=== PATIENT | female | born 2000 | race Caucasian/White ===

== ENCOUNTER 2024-09-04 14:35 | Outpatient (REF) | payer SELFPAY ==
--- OUTSIDE RECORDS SUMMARY | 2024-09-04 14:37 | XMS_ITS | Encounter Summary ---
Author Organization [facility] Address [address] [place] [address] Care Team Providers Care Chief Technology Officer Name Role Phone None, [place] Primary Care Provider Unavailabl e Encounter Details Date Type Department Care Team (Latest Contact Info) Description 12/24/2023 12:52 PM EDT - 12/24/2023 11:59 PM EDT Hospital Encounter [facility] [address], [address] [place] [address] Adri Tang PA-C [address] [facility] [address] [place], [place] [address] Back pain, unspecified back location, unspecified back pain laterality, unspecified chronicity Discharge Disposition: Home or Self Care Social History Tobacco Use Types Packs/Day Years Used Date Smoking Tobacco: Never Smokeless Tobacco: Never Alcohol Use Standard Drinks/Week Comments Yes 5 (1 standard drink = 0.6 oz pur e alcohol) Comments No Sex and Gender Information Value Date Recorded Sex Assigned at Female 04/29/2023 10:10 AM EDT Legal Sex Female 9:53 PM EST Gender Identity Female 04/29/2023 10:10 AM EDT Sexual Orientation Straight 04/29/2023 10 :10 AM EDT documented as of this encounter Medications at Time of Discharge buPROPion 24 HR (WELLBUTRIN XL) 300 MG 24 hr tablet Take 1 tablet by mouth every morning. etonogestrel (NEXPLANON) 68 MG IMPL 1 Device by Subdermal route one time. hydrOXYzine HCL (ATARAX) 10 MG tablet Take 1 tablet by mouth 3 times daily as needed for itching. oxyCODONE (ROXICODONE) 5 MG immediate release tabletIndication s:Acute Pain,Postoperati ve Pain Take 1 tablet by mouth every 4 hours as needed for pain. 30 tablet 05/09/2023 12:29 PM EDT 05/09/2023 sertraline (ZOLOFT) 50 MG tablet Take 1 tablet by mouth daily. documented as of this encounter Plan of Treatment Not on file documented as of this encounter Procedures Procedure Name Priority Date/Time Associated Diagnosis Comments XR SCOLIOSIS STANDING PA AND LATERAL Routine 12/24/2023 1:03 PM EDT Back pain, unspecified back location, unspecified back pain laterality, unspecified chronicity documented in this encounter Results * XR SCOLIOSIS STANDING PA AND LATERAL (12/24/2023 1:03 PM EDT) Anatomical Region Laterality Modality Cev Thor Lumbar Spine Radiograph ic Imaging Impressions 12/24/2023 4:42 PM EDT Mild sagittal imbalance and reversal of cervical lordosis; otherwise normal spine radiographs. Bud Doran M.D. Attending Physician, Radiology Narrative 12/24/2023 4:42 PM EDT EXAMINATION: XR SCOLIOSIS STANDING PA AND LATERAL performed on 12/24/2023 ?? COMPARISON: None. CLINICAL INDICATION: ; back pain; ?? FINDINGS: Standing PA and lateral low dose scoliosis views of the entire spine demonstrate twelfth pairs of ribs and 5 lumbar vertebrae with no focal vertebral anomaly. There is mild reversal of expected cervical lordosis. There is no substantial spondylolisthesis. The coronal ruben line falls within normal limits. The sagittal ruben line measures -5 centimeters. Disc space heights are preserved. Procedure Note Bud Doran MD - 12/24/2023 EXAMINATION: XR SCOLIOSIS STANDING PA AND LATERAL performed on 12/24/2023 COMPARISON: None. CLINICAL INDICATION: ; back pain; FINDINGS: Standing PA and lateral low dose scoliosis views of the entire spinedemonstrate twelfth pairs of ribs and 5 lumbar vertebrae with no focalvertebral anomaly. There is mild reversal of expected cervical lordosis.There is no substantial spondylolisthesis. The coronal ruben line fallswithin normal limits. The sagittal ruben line measures -5 centimeters.Disc space heights are preserved. IMPRESSION: Mild sagittal imbalance and reversal of cervical lordosis; otherwisenormal spine radiographs. Bud Doran M.D. Attending Physician, Radiology Adri Tang PA-C IMG DIAGNOSTIC IMAGING ORDERAB LES Final Result documented in this encounter Visit Diagnoses Diagnosis Back pain, unspecified back location, unspecified back pain laterality, unspecified chronicity documented in this encounter Care Teams Chief Technology Officer Relationship Specialty Start Date End Date None, [place] PCP - General 02/22/17 documented as of this encounter
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
--- OUTSIDE RECORDS SUMMARY | 2024-09-04 14:37 | XMS_ITS | Referral Summary ---
Author Organization [facility] Address [address] [place] [address] Care Team Providers Care Family Service Counselor Name Role Phone None, [place] Primary Care Provider Unavailabl e Allergies No known active allergies Medications etonogestrel (NEXPLANON) 68 MG IMPL 1 Device by Subdermal route one time. Active buPROPion 24 HR (WELLBUTRIN XL) 300 MG 24 hr tablet Take 1 tablet by mouth every morning. Active sertraline (ZOLOFT) 50 MG tablet Take 1 tablet by mouth daily. Active hydrOXYzine HCL (ATARAX) 10 MG tablet Take 1 tablet by mouth 3 times daily as needed for itching. Active oxyCODONE (ROXICODONE) 5 MG immediate release tabletIndicatio ns:Acute Pain,Postoperat flavio Pain Take 1 tablet by mouth every 4 hours as needed for pain. 30 tablet 05/09/2023 12:29 PM EDT Active Additional Information Patient not taking.Reported on 05/21/2023 Active Problems Problem Noted Date Diagnosed Date Rupture of posterior cruciate ligament of left k nee 04/30/2023 Overview (04/30/2023): Added automatically from request for surgery [id number] Left leg injury, initial encounter 2023 Social History Tobacco Use Types Packs/Day Years [...] Orientation Straight 04/29/2023 10 :10 AM EDT Last Filed Vital Signs Vital Sign Reading Time Taken Comments Blood Pressure 127/55 05/09/2023 4:12 PM EDT Pulse 72 05/09/2023 12:54 PM EDT Temperature 36.9 ??C (98.4 ??F) 05/09/2023 12:54 PM E DT Respiratory Rate 19 05/09/2023 4:12 PM EDT Oxygen Saturation 97% 05/09/2023 4:12 PM EDT Inhaled Oxygen Concentration - - Weight 67.3 kg (148 lb 5.9 oz) 05/09/2023 7:15 A M EDT Height 165.1 cm (5' 5) 04/30/2023 3:48 PM EDT Body Mass Index 24.69 04/30/2023 3:48 PM EDT Plan of Treatment Not on file Medical Devices Implanted Type Area Icer Machine Operator Device Identifier Shelf Expiration Date Model / Serial / Lot Implant, Other Implant, Other Left: Arm [place] 4.75mm X 19.1mm Peek Arthrex Implanted:Qty: 1 on 05/09/2023 by Zurdo Bell MD at [facility] [place] Internal Fixation Left: Knee Arthrex 2 04/07/2027 [id number] / / [id number] Care Teams Family Service Counselor Relationship Specialty Start Date End Date None, [place] PCP - General 02/22/17
--- OUTSIDE RECORDS SUMMARY | 2024-09-04 14:37 | XMS_ITS | Encounter Summary ---
Author Organization [facility] Address [address] [place] [address] Care Team Providers Care Glass Fitter Name Role Phone None, [place] Primary Care Provider Unavailabl e Encounter Details Date Type Department Care Team ([facility] st Contact Info) Description 2023 Orders Only Radiology, [facility] - Nuclear Medicine [address] [place] [id number] Interface, [place] [phone] (Work) Social History Tobacco Use Types Packs/Day Years [...] AM EDT documented as of this encounter Plan of Treatment Not on file documented as of this encounter Procedures Procedure Name Priority Date/Time Associated Diagnosis Comments XR NO READ NON-[facility] STUDY Routine 04/20/2023 12:00 AM EDT documented in this encounter Results * XR No Read Non-[facility] Study (04/20/2023 12:00 AM EDT) Anatomical Region Laterality Modality Other 2023 2:59 PM EDT Narrative 2023 2:59 PM EDT This is a non-reportable study used for image storage. It has been automatically finalized and does not contain a result. Procedure Note NO READ [facility] - 2023 This is a non-reportable study used for image storage. It has beenautomatically finalized and does not contain a result. us User Interface IMG DIAGNOSTIC IMAGING ORDERABLE S Final Result documented in this encounter Visit Diagnoses Not on filedocumented in this encounter Care Teams Glass Fitter Relationship Specialty Start Date End Date None, [place] PCP - General 02/22/17 documented as of this encounter
--- OUTSIDE RECORDS SUMMARY | 2024-09-04 14:37 | XMS_ITS | Encounter Summary ---
Author Organization [facility] Address [address] [place] [address] Care Team Providers Care Game Room Attendant Name Role Phone None, Bronson Primary Care Provider Unavailabl e Reason for Referral * Consult and Treat (Routine) - Closed Specialty Diagnoses / Procedures Referred By Marina samuel Referred To Contact Physical Therapy Diagnoses Aftercare following surgery of the musculoskeletal system Kalin Chun PA-C Referral ID Status Reason Start Date Expiration Date Visits Re quested Visits Authorized [id number] Closed 05/09/2023 06/08/2024 1 1 Reason for Visit * Auth/Cert (Routine) Specialty Diagnoses / Procedures Referred By Marina samuel Referred To Contact Diagnoses Rupture of posterior cruciate ligament of left knee, sequela Rupture of posterior cruciate ligament of left knee, sequela [S83.522S] Procedures ND KNEE SCOPE,AID POST CRUC REPAIR KNEE, ARTHROSCOPY ASSISTED REPAIR;POSTERIOR(PCL)LIGAMENT Zurdo Bell MD [address] [place] [address] Phone: tel: fax: Referral ID Status Reason Start Date Expiration Date Visits Re quested Visits Authorized [id number] [phone] Encounter Details Date Type Department Care Team (Latest Contact Info) Description 05/09/2023 6:46 AM EDT - 05/09/2023 4:18 PM EDT Hospital Encounter [facility] [address] [facility] Ground Floor, [address] [place] [id number] Zurdo Bell MD [address] [address] Aftercare following surgery of the musculoskeletal system (Primary Dx) Discharge Disposition: Home or Self Care Social [...] oz) 05/09/2023 7:15 A M EDT Height - - Body Mass Index 24.69 04/30/2023 3:48 PM EDT documented in this encounter Discharge Instructions * Discharge Instructions* Arcelia Collazo RN - 05/09/2023 8:31 AM EDT DISCHARGE INSTRUCTIONS FOR PCL RECONSTRUCTION Contact the Sports Medicine Clinic at if you have questions about your instructions or follow-up appointment. DIET: Start with clear liquids and light foods to minimize nausea. Once these are tolerated, advance to aregular diet. TRIP HOME: To encourage blood flow and decrease your risk of blood clots, do the following on your ride home: If possible, perform ankle pumps by moving your foot up and down. If your ride home will be longer than 2 hours, it is best to stop at least once to get out of the car and move your leg. While in the car, consider riding in the back seat with your surgical leg elevated. DRESSING AND WOUND CARE: Keep the dressing clean and dry. Some bleeding is expected after your surgery. Additionally, it is normal for there to be some drainage after surgery since the knee was irrigated with large amounts of fluid. Reinforce with additional gauze and/or PRESTON??? wraps as necessary. Remove the dressing the 2nd day after surgery and begin changing daily with clean gauze or Band-Aids?? and the PRESTON??? wrap. Keep your incisions covered until you follow up in clinic. If you have Steri-Strips??? in place of stitches, allow them to stay in place as long as possible. Steri-Strips??? are made of a fabric material that can get wet in the shower and pat dry with a towel. They usually fall off on their own within 7 to 10 days. You may trim the edges as they begin to curl. BATHING: You may bathe or shower on the 2nd day after surgery, but do not scrub or soak the incisions. Dry the area by gently blotting it with a gauze or towel. After it is completely dry, cover the wound with clean gauze or Band-Aids??. Do NOT submerge the incisions (bath/swim) until after the sutures are removed and the wound has completely healed. ACTIVITY: Ice should be applied to the knee for 20-30 minutes, 5-6 times a day, to help control pain and swelling. Apply additional times as needed, especially after exercise, for the first 3-4 weeks. Do not apply ice directly to the skin; use a thin barrier in between. Also, do not use heat. Compression applied to the knee with an PRESTON??? bandage can help with swelling. When wrapping, startbelow the knee and work up. Elevate the leg when possible with pillows under the ankle. While it may seem comfortable, do not put pillows under the knee for long periods of time. It is important to be able to straighten your knee and having the knee bent while elevating can make this difficult. Elevation, as a rule, should behigher than your heart. You can stop elevating when comfortable. Bear weight as tolerated. Crutches can be used to help you walk for the first 1- 2 weeks. You can stop using them once you are able to walk without a limp. It is important to move after surgery. Do not plan to walk long distances, climb multiple flights of stairs, kneel, squat, crawl, or carry heavyobjects until cleared by your surgeon. NO jumping, twisting, or running sports. Physical therapy should be started within 3 days of surgery. Take your therapy prescription to the PT clinic of your choice. If you have not received a therapy prescription, please contact your surgeon???s office to have a script sent to your physical therapist. KNEE IMMOBILIZER BRACE: You may be given a straight knee immobilizer brace if you had a nerve block. Use this brace when out of bed to provide support and help prevent falls while your leg is numb. When not up walking, remove the brace and bend the knee, even during the initial day(s) when the nerve block is still working. Stop using the brace within the first few days once the numbness of the nerve block wears off and you have full control of your leg. It is important that you do not leave this brace on or you will get stiff. PAIN CONTROL: It is important to stay ahead of pain as it becomes challenging to get under control if you fall behind. Ice and elevation can help and should be used as much as possible in the first few days. Narcotic pain medications, such as hydrocodone or oxycodone, should be taken as prescribed. Wean off as soon as possible. Take these with food to decrease the chances of nausea and vomiting. Do not drink alcohol, drive a vehicle, or use heavy machinery while taking narcotic pain medications. NSAID medications are used for pain control and to decrease inflammation. You may be prescribed an NSAID such as ketorolac (Toradol). Take as instructed. Other NSAID medications such as ibuprofen, Motrin, Advil, naproxen, or Aleve can be used once you have finished the Toradol, or if a prescriptionfor Toradol was not provided. Acetaminophen (Tylenol) is an effective uoxc-yes-hqovvtz pain medication that can be used with NSAID medications and non-acetaminophen containing narcotics such as plain oxycodone. ASPIRIN FOR PREVENTION OF BLOOD CLOTS: You should take one 81 mg baby aspirin twice daily for two weeks starting the evening of the day you have surgery unless instructed otherwise or taking a different blood thinner such as enoxaparin orwarfarin. If you are aware that you are at high risk for a blood clot, notify your physician as soon as possible. Take aspirin at least 30 minutes before taking ibuprofen or Toradol. CONSTIPATION PREVENTION: Constipation is a common problem after surgery for multiple reasons that include pain medication, staying in bed as opposed to moving around, and dehydration. However, there are steps that you can take to help decrease this issue. When taking Hydrocodone, Oxycodone, or other opioids for pain, you should take an rtvq-tan-nbrukmi gentle laxative such as Senna or Miralax. These medications work most effectively when you are well hydrated. It is important to drink water, at least 8 (8oz) glasses per day, and eat high fiber foods including whole grains, fresh fruits, vegetables, beans, prunes or prune juice. PROBLEMS TO REPORT: Persistent bloody drainage that soaks through reinforced dressings. Fever greater than 101F or 38C. Incision that is very red, swollen, draining pus, shows red streaks, or feels hot. Inability to urinate within 8 hours of surgery (a rare effect of the anesthesia). If you develop a rash, generalized itching or swelling from the medications, STOP the medication and call the clinic or the orthopedic surgery resident real estate professional. Daytime calls should be directed to the Sports Medicine Clinic at [phone]. Night-time and weekend calls should be directed to the Orthopedic surgery resident real estate professional, who canbe reached through the [facility] fagoting machine operator at [phone]. FREQUENTLY ASKED QUESTIONS WHAT DAILY ACTIVITIES CAN I DO? After knee surgery, daily activities such as walking, going up/down stairs, or desk work should notcause damage to your knee. Use the crutches as directed. CAN I DRIVE OR RIDE BY CAR/ TRAIN/ PLANE? You should not drive until after your 1st follow-up visit. You should not drive while taking narcotic pain medications. You may ride in a car after surgery as needed. Keep the knee elevated with pillows under the ankle. You may take a train or even fly the day after your surgery as long as you feelsecure and comfortable. If you do fly, expect some extra swelling due the drop in air pressure. A compressive bandage, ice, and elevation should help this resolve. WHAT ABOUT WORK? You may return to an office-type job or to school whenever comfortable. For most patients this occurs 1 week after surgery. For more active jobs that require extended walking, squatting, or lifting, you can wait until after your follow-up appointment. Any other unusual types of jobs should be discussed to determine a date for return to work. WHAT ABOUT SWELLING? Expect swelling as a normal process after surgery. Ice, compression, elevation, and other treatments provided at physical therapy will allow this to improve in time. Some swelling may remain for up to 8 weeks, and this is normal. WHAT IF IT REALLY HURTS TOO MUCH? Surgery hurts and you cannot expect to be pain free, but our goal is for it to be tolerable. Try touse all available pain therapies such as narcotics, NSAIDS, and acetaminophen. Always try more ice and elevation. If the pain is not tolerable, call the clinic or the orthopedic resident real estate professional. Adult Post Anesthesia Discharge Instructions: {JENNIFFER Post Anesthesia Discharge Instructions - Anesthesia Type:[id number]} ALL ADULTS: Do not drive a car or operate machinery for 24 hours or while taking opioid pain medications. Do not drink alcoholic beverages or make any personal or business decisions for 24 hours or while taking opioid pain medicines. You may feel dizzy or lightheaded for 24 hours. Restrict your activity as necessary. Always wash your hands before and after caring for any wound. If you have problems, such as excessive bleeding, after discharge from the surgery center or the hospital, please call your surgeon. In the case of an emergency call 911 For questions about your surgery AFTER HOURS call: [facility] toll free number: or [facility] [phone] and ask for the resident real estate professional for your surgeon For questions about your anesthesia: Call or [facility] [phone] and ask to speak with the residential instructor real estate professional (pager number [phone]) You received a dose of acetaminophen prior to discharge. Your next dose of medication containing acetaminophen (Tylenol, [place], Percocet) may be taken after 6 PM. You received a NSAID medication during your procedure today. Your next dose of a NSAID (ketorolac, ibuprofen, Motrin, Advil, Aleve, Naproxen, etc) may be taken after 4 PM. You received Oxycodone for pain control prior to discharge. Your next dose of opioid pain medicine may be taken after 8 PM. Medication Safety at Home Take as prescribed. Do not share medication with others. Keep medications secure and out of sight of children and guests. Dispose of unused or medication - at drop boxes or with a medication disposal bag. Or make your own disposal bag at home: mix medication with dirt, phu litter, or old coffee grounds; put harsh sealed plastic bag; throw bag in trash. Do not flush medications down the toilet or drain. The Poison Control Help Phone number is documented in this encounter Medications at Time of Discharge buPROPion 24 HR (WELLBUTRIN XL) 300 MG 24 hr tablet Take 1 tablet by mouth every morning. etonogestrel (NEXPLANON) 68 MG IMPL 1 Device by Subdermal route one time. hydrOXYzine HCL (ATARAX) 10 MG tablet Take 1 tablet by mouth 3 times daily as needed for itching. oxyCODONE (ROXICODONE) 5 MG immediate release tabletIndications:Ac [place] Pain,Postoperative Pain Take 1 tablet by mouth every 4 hours as needed for pain. 30 tablet 05/09/2023 12:29 PM EDT 05/09/2023 sertraline (ZOLOFT) 50 MG tablet Take 1 tablet by mouth daily. aspirin 81 MG chewable tabletIndications:Af tercare following surgery of the musculoskeletal system Take 1 tablet by mouth 2 times daily for 14 days. Take until finished. 28 tablet 05/09/2023 12:29 PM EDT 05/09/2023 ketorolac (TORADOL) 10 MG tabletIndications:Af tercare following surgery of the musculoskeletal system Take 1 tablet by mouth every 6 hours as needed for up to 5 days for pain. 20 tablet 05/09/2023 12:29 PM EDT 05/09/2023 3 documented as of this encounter Progress Notes Only the most recent of 4 notes is shown. * Esther Sanabria PT - 05/09/2023 3:49 PM EDT Physical Therapy Crutch Training Visit Pt and caregiver in room when PT entered room. Pt was provided crutch training handout and educatedin safe use of crutches for ambulation, mobility/transfers, and stair negotiation. Pt was also instructed in 50% WB status. Pt was issued crutches and they were adjusted to her height and arm length. Pt performed supine to/from sit with SBA; sit to/from stand with SBA and VC's for safe hand placement with use of axillary crutches; and ambulated 15' with CGA/SBA with use of axillary crutches and VC's for safe gait pattern. No adverse symptoms noted. Pt has 3 steps with one handrail to enter home and one flight of stairs with one handrail inside home. Pt and caregiver educated in safe technique to ascend/descend stairs with use of axillary crutches. Pt and caregiver were also given a written handout and instructed in the use and care of hinged knee brace per MD RKAUSE instructions. PT spoke with Dr. Bell on the phone to clarify WB status, use of brace, and PT protocol. Brace to be locked at 0?? for the first two weeks at all times except for passive ROM exercises by ATC or PT for first month. WB status: 50% WB in brace, must use crutches for first month (4-5 weeks). Pt to follow rehab protocol for PCL reconstruction, which has been printed out and given to pt and her mother. All questions answered. documented in this encounter H&P Notes * Kalin Chun PA-C - 05/09/2023 8:30 AM EDT Orthopaedic Surgery Date: 05/09/2023 H&P Update Time: 08:30 H&P Update This form is being used to update an initial H&P that is less than 30 days old. If greater than 30 days old, H&P must be performed and rewritten. There have been no changes in the physical condition of this patient since the initial H&P was performed on 04/30/23. The following systems were reviewed: Airway Cardiac Respiratory Changes in systems: None Changes in allergies or medications (include name, dose, and how often) None This patient was seen today under the supervision of Dr. Arabella Chun PA-C [place] [facility] Sports [facility] Division documented in this encounter OR Notes * Op Note - Zurdo Bell MD - 05/09/2023 12:56 PM EDT ORTHOPAEDIC SURGERY OPERATIVE REPORT DATE OF SERVICE: 05/09/2023 PATIENT'S NAME: Haley Garcia ATTENDING: Zurdo Bell MD SURGEON: Zurdo Bell MD PREOPERATIVE DIAGNOSIS: Left knee PCL tibial avulsion fracture POSTOPERATIVE DIAGNOSIS: Left knee PCL tibial avulsion fracture PROCEDURES PERFORMED: Left knee arthroscopic PCL avulsion repair FELLOW: Lewis Terrazas MD ANESTHESIA: General EBL: Minimal SPECIMENS: none DRAINS: none COMPLICATIONS: none IMPLANTS: Arthrex 4.75mm SwiveLock TOURNIQUET TIME: 120 minutes at 300 mmHg. OPERATIVE INDICATIONS: Haley Garcia is a 23 y.o. year old female who unfortunately sustained a fall which resulted in a left knee PCL avulsion fracture. She is having knee instability which is affecting her daily. She was seen and evaluated in clinic where her diagnosis was confirmed based on imaging and examination. We discussed treatment options with the patient including nonoperative versus operative measures as well as the risks and benefits of each. Understanding these, the patient wished to proceed with surgery. These risks included were not limited to: damage to nerves, arteries, tendons, veins, infection, bleeding, continued pain, continued disability, need for revision surgery, chondral changes/chondral damage, loss of knee range of motion, stiffness, damage to ligaments causing knee instability potentially requiring bracing, hardware failure, retained broken hardware, retained broken instrumentation, new onset pain, need for additional surgery, painful hardware, need for use of allograft use (with associated risks and benefits discussed with the patient), paresthesias, numbness/tingling, venothromboembolism, and associated complications with anesthesia. Understanding these risks, the patient requests to proceed with surgery and informed consent was obtained. EUA: Knee range of motion 0-135 degrees of flexion. Positive posterior sag positive posterior drawer. Negative Martín. Left knee stable to varus and valgus stress at 0 and 30??. PROCEDURE IN DETAIL: The patient was identified in the preoperative holding area and the operative extremity was confirmed and marked in indelible marker. The patient was transported to the operativetheater and transferred to the operative table in supine position where General anesthesia was administered. The patient was secured to the table, bony prominences were padded, and the operative extre mity was prepped and draped in the standard sterile fashion. Prior to proceeding a final time-out was called where all present agreed on the patient identification, procedure, side, site, and procedure to be performed. Preoperative antibiotics were given in the form of Cefazolin 2 g intravenously and completed within 30 min of skin incision. An esmarch was used and the tourniquet raised to 300mmHg. A standard anterolateral portal was established with an 11 blade scalpel. The arthroscope was introduced. The patellofemoral compartment demonstrated normal cartilage with no loose bodies. There were no loose bodies in the medial or lateral g utters. The anteromedial portal was made with 11 blade scalpel after needle localization. The medial meniscus was examined and found to be intact without tearing. The medial compartment had preservedgrade 0 cartilage on the femur and the tibia. The knee was placed in the figure 4 position lateral compartment was entered. The lateral meniscus was found to be intact without tearing. The lateral femoral condyle and lateral tibial plateau cartilage were both intact with grade 0 changes. We returned to the notch and examined the ACL which was found to be intact but de-tensioned secondary to the posterior sag of the tibia. The PCL notably was deep tensioned as well. Next a transeptal portal was established after creating a posteromedial portal per routine and a posterolateral portal per routine. Cannulas were placed and scope and shaver introduced, medial and laterally respectively. The PCL tibial origin was identified. We were able to identify 2 individual fracture fragments with posterior cruciate ligament attached to each. We worked to free and mobilize these fracture fragments as well as the donor site bed on the tibia itself. We then used a tibial PCLguide and placed this at the PCL footprint on the tibia which correlated well with our fracture fragment and donor site bed. We made a small vertical incision on the anteromedial face of the tibia and placed the guide down to bone. We then used a 3/32pin and drilled through the tibia stopping just at the location of the PCL footprint. We used intraoperative fluoroscopy to confirm appropriate pin placement in the coronal and sagittal plane. Satisfied, we then over-drilled this with a 4 mm Reamer. We then passed 3 different tape sutures through the distal aspect of the PCL making sure to circumferentially capture PCL that was attached to each individual fracture fragment. We tied 1 of the sutures using arthroscopic knot-tying technique to help reduce the 2 fracture fragments back to themselves. We then shuttled the remaining 2 suture tapes through the tibia. We were able to directly visualize anatomic reduction of the avulsion fracture. We also used fluoroscopy as well to confirm fracture reduction. We then applied an anterior drawer force on the tibia and secured the suture tapes on the anteromedial face of the tibia using a 4.75 mm SwiveLock anchor with the knee in 90degrees of flexion. The posterior sag and drawer tests were negative, and the noraml tibial step-off was recreated . The PCL was visualized and found to have excellent tensioning through range of motion. Likewise, the ACL tension was excellent as well. The tourniquet was released with prompt return of circulation. All wounds were thoroughly irrigated with copious normal saline. 2-0 vicryl was used to closed deepsubcutaneous tissues with 3-0 nylon suture used on skin. Xeroform dressing was applied followed by 4x4s, soft-rol, and a preston bandage. A total ROM brace was placed on the patient. There were no acute complications. The patient tolerated the procedure well. Zurdo Bell MD was present for the entire case. The patient was awakened from anesthesia and transported to the PACU in stable condition. Post-operatively the patient had a warm and well perfused foot with palpable DP and PT pulses. She was able to fire her tibialis anterior, gastrocsoleus, EHL and FHL with good strength. She endorsed sensation intact to light touch in the superficial peroneal, deep peroneal, sural, and saphenous nerve distributions. She was then indicated for a post-operative block per anesthesia. POSTOPERATIVE PLAN: PCL knee reconstruction rehab protocol ASA for 2 weeks for DVT prophylaxis Follow-up in approximately 2 weeks for suture removal Lewis Terrazas MD Orthopaedic Surgery Sports Medicine Fellow I was present and scrubbed for the entire procedure except for skin closure. I have edited the operative note as appropriate. F. William Bell MD Sports Medicine / Arthroscopy of the Shoulder, Hip, and Knee Medical Microbiologist, Orthopaedic Surgery [facility] Orthopa[facility] Center - [address] [place] [address] (clinic) [phone] (F) [phone] documented in this encounter Plan of Treatment Scheduled Referrals Name Type Priority Associated Diagnoses Orde r Schedule Ambulatory referral to Physical Therapy Outpatient Referral Routine Aftercare following surgery of the musculoskeletal system Ordered: 05/09/2023 documented as of this encounter Procedures Procedure Name Priority Date/Time Associated Diagnosis Comments XR FLUORO UP TO 1 HOUR 4 Radiology: Inpatient STEVEN/Most Inpts/Priority 4 05/09/2023 12:44 PM EDT ND ARTHRS AIDED PST CRUCIATE LIGM RPR/AGMNTJ/RCNSTJ 05/09/2023 9:52 AM EDT Rupture of posterior cruciate ligament of left knee, sequela Special Needs OPSC or IVYPCL retractor documented in this encounter Results * XR FLUORO UP TO 1 HOUR (05/09/2023 12:44 PM EDT) Narrative Alexandro Mayberry Tech - 05/09/2023 12:46 PM EDT 38.4 of fluoro time was provided for Guidance. us Zurdo Bell MD IMG FL CANNED REPORT Rachel l Result documented in this encounter Visit Diagnoses Diagnosis Rupture of posterior cruciate ligament of left knee- Primary Aftercare following surgery of the musculoskeletal system Aftercare following surgery of the musculoskeletal system, NEC documented in this encounter Administered Medications Inactive Administered Medications - up to 3 most recent administrations Medication Order MAR Action Action Date Dose Rate Site sodium chloride 0.9 % irrigation ONE-STEP BOLUS, Starting on Fri05/09/23 at 1040, Until Fri05/09/23 at 1834, Intra-op Given 05/09/2023 12:14 PM EDT 3 L Given 05/09/2023 11:45 AM EDT 3 L Given 05/09/2023 11:30 AM EDT 3 L documented in this encounter Active and Recently Administered Medications Times are shown in EDT. PRN Medication Order 05/07/2023 05/08/2023 05/09/2023 sodium chloride 0.9 % irrigation ONE-STEP BOLUS, Starting on Fri05/09/23 at 1040, Until Fri05/09/23 at 1834, Intra-op 1040 (Given - Provid er: Zurdo Bell MD)1130 (Given - Provider: Zurdo Bell MD)1145 (Given - Provider: Zurdo Bell MD)1214 (Given - Provider: Zurdo Bell MD) documented in this encounter Care Teams Game Room Attendant Relationship Specialty Start Date End Date None, [place] PCP - General 02/22/17 documented as of this encounter
--- OUTSIDE RECORDS SUMMARY | 2024-09-04 14:37 | XMS_ITS | Encounter Summary ---
Author Organization [facility] Address [address] [place] [address] Care Team Providers Care Firearms Instructor Name Role Phone None, [place] Primary Care Provider Unavailabl e Reason for Visit * Reason Onset Date Comments Other 04/28/2023 Encounter Details Date Type Department Care Team ([facility] st Contact Info) Description 04/28/2023 Telephone [facility] [address], [address] [place] [address] Edgard Beverly MD [address] [facility] [address] [place], [place] [id number] Other Social History Tobacco Use Types Packs/Day Years [...] AM EDT documented as of this encounter Progress Notes * Shanna Izaguirre RN - 04/28/2023 5:18 PM EDT Called pt and had to LM letting her know that Dr. Beverly has reached out to Dr. Arabella zuñigaher case. * Shanna Izaguirre RN - 04/28/2023 2:16 PM EDT Please advise on MRI results and plan. * Reza Moody - 04/28/2023 2:12 PM EDT CLARIFICATION/MEDICAL QUESTION Patient needs clarification regarding: Pt said she has called and LVM on Fri about what to do medical treatment fajardo with her left tibia. She has not heard back yet and would like to speak with somebody. call [phone]. Is it okay to respond to patient via [place]? No Call is considered ROUTINE PRIORITY and route to appropriate personnel: Patient advised patient calls will be returned as soon as possible and within 24 hours. documented in this encounter Plan of Treatment Not on file documented as of this encounter Visit Diagnoses Not on filedocumented in this encounter Care Teams Firearms Instructor Relationship Specialty Start Date End Date None, [place] PCP - General 02/22/17 documented as of this encounter
--- OUTSIDE RECORDS SUMMARY | 2024-09-04 14:37 | XMS_ITS | Encounter Summary ---
Author Organization [facility] Address [address] [place] [id number] Care Team Providers Care Floorworker Lasting Name Role Phone None, [place] Primary Care Provider Unavailabl e Encounter Details Date Type Department Care Team ([facility] Contact Info) Description 05/15/2023 Orders Only Documentation [address] [place] [phone] Interface, [place] [phone] (Work) Social History Tobacco Use Types Packs/Day [...] Procedure Name Priority Date/Time Associated Diagnosis Comments RESULTS - IMAGES/PHOTOS 05/15/2023 5:47 AM EDT documented in this encounter Results * RESULTS - IMAGES/PHOTOS (05/15/2023 5:47 AM EDT) Anatomical Region Laterality Modality Other us User Interface CONVERSION TRANSCRIPTIONS Final Result documented in this encounter Visit Diagnoses Not on filedocumented in this encounter Care Teams Floorworker Lasting Relationship Specialty Start Date End Date None, [place] PCP - General 02/22/17 documented as of this encounter
--- OUTSIDE RECORDS SUMMARY | 2024-09-04 14:37 | XMS_ITS | Encounter Summary ---
Author Organization [facility] Address [address] [place] [address] Care Team Providers Care Rag Cutting Machine Operator Name Role Phone None, [place] Primary Care Provider Unavailabl e Encounter Details Date Type Department Care Team (Latest Contact Info) Description 2023 3:31 PM EDT - 2023 7:54 PM EDT Hospital Encounter [facility] [address], [address] [place] [address] Edgard Beverly MD [address] [facility] [address] [place], [place] [id number] Left leg injury, initial encounter Discharge Disposition: Home or Self Care Social [...] 3 times daily as needed for itching. sertraline (ZOLOFT) 50 MG tablet Take 1 tablet by mouth daily. ibuprofen (MOTRIN) 200 MG tablet Take 200 mg by mouth every 6 hours as needed for pain. Take with food documented as of this encounter Plan of Treatment Not on file documented as of this encounter Procedures Procedure Name Priority Date/Time Associated Diagnosis Comments XR KNEE 4 VWS OR MORE LT Routine 2023 3:50 PM EDT Left leg injury, initial encounter documented in this encounter Results * XR KNEE AP LATERAL AND OBLIQUES [...] documented in this encounter Visit Diagnoses Diagnosis Left leg injury, initial encounter documented in this encounter Care Teams Rag Cutting Machine Operator Relationship Specialty Start Date End Date None, [place] PCP - General 02/22/17 documented as of this encounter
--- OUTSIDE RECORDS SUMMARY | 2024-09-04 14:37 | XMS_ITS | Encounter Summary ---
Author Organization [facility] Address [address] [place] [address] Care Team Providers Care Can Conveyor Feeder Name Role Phone None, [place] Primary Care Provider Unavailabl e Reason for Visit * Auth/Cert (Routine) Specialty Diagnoses / Procedures Referred By Contac t Referred To Contact Diagnoses Rupture of posterior cruciate ligament of left knee, sequela Rupture of posterior cruciate ligament of left knee, sequela [S83.522S] Procedures IA KNEE SCOPE,AID POST CRUC REPAIR KNEE, ARTHROSCOPY ASSISTED REPAIR;POSTERIOR(PCL)LIGAMENT Zurdo Bell MD [address] [facility] [address] [place] [address] Phone: tel: fax: Referral ID Status Reason Start Date Expiration Date Visits Re quested Visits Authorized [id number] [phone] Encounter Details Date Type Department Care Team (Late st Contact Info) Description 05/09/2023 9:50 AM EDT Anesthesia Event [facility] Orthopedic [facility] Operating Room [address] [facility] Floor, [address] [place] [address] Alexandro Hall MD [address] [facility] [id number] [place], [place] [id number] Mckenna Ly CRNA [address] [facility] [id number] [place], [place] [id number] Anesthesia Record Procedure Summary Procedure Name Responsible Anesthesiologist Anesthesia Start Time Anesthesia Stop Time KNEE, ARTHROSCOPY ASSISTED REPAIR;POSTERIOR(PCL) LIGAMENT (Left: Knee) Alexandro Hall MD 05/09/23 0950 05/09/23 1253 Events Date Time Event Comment 05/09/2023 0826 0826 Attending Pre-Attest I have personally evaluated and examined the patient and agree with the anesthetic plan as documented. 0950 An Start 0953 Check In 0954 An Start Data 0957 An Induction The patient was reevaluated immediately before moderate or deep sedation use and before anesthesia induction. 0958 An Intubation 0958 Anesthesia Ready 1020 Timeout 1021 An Tourn Inflated 1222 An Tourn Deflated 1234 An Extubation 1246 Controlled Substance A momen t was taken to reconcile that controlled substances were handled appropriately and remainders were wasted as appropriate. 1247 an stop data 1251 Handoff to RN I completed my handoff to the receiving nurse during which we: 1. Identified the patient 2. Identified the responsible provider 3. Reviewed the pertinent medical history 4. Discussed the surgical course 5. Reviewed intra-op anesthesia management and issues during anesthesia 6. Set expectations for post-procedure period 7. Allowed opportunity for questions and acknowledgement of understanding. 1253 An Stop 1702 Attending Attest The case wa s monitored at frequent intervals by an attending anesthesiologist. I remained physically present and available for immediate diagnosis and treatment of emergencies. I was present for emergence / end of case care. Post-anesthesia care was provided as needed. Alexandro Hall MD Attending Anesthesiologist Meds Name Total ceFAZolin 1 g vial 2 g midazolam 2 mg/2 mL vial 2 mg lidocaine injection 2% 100 mg propofol injection 300 mg fentaNYL injection 100 mcg ketamine injection 10 mg/mL 20 mg dexamethasone 4 mg/1 mL vial 4 mg ondansetron 4 mg/2 mL injection 4 mg ketorolac 30 mg/1 mL vial 30 mg dexmedetomidine 32 mcg/8mL syringe 16 mc g ePHEDrine 50 mg/10 mL syringe 10 mg ropivacaine (NAROPIN) 30 mL, dexamethaso ne (PF) (DECADRON) 0.4 mL injection 22 mL lactated ringers infusion 800 mL * Agents Name O2 Air Sevoflurane * Blood No blood administrations on file. Lines, Drains, and Airways Type Details Placement Removal Incision 05/09/23; 1025; Knee; Left 05/09 1025 by Dafne Thayer RN Peripheral IV Date: 05/09/23; Time : 0804; Site Prep: Chlorhexidine Prep; Laterality: Posterior, Right; Location: Wrist; Inserted By: RN; Number of Attempts: 1 05/09/23 0804 by Shavon Prajapati RN 05/09/23 1625 by Arcelia Collazo RN documented in this encounter Social History Tobacco Use Types Packs/Day [...] AM EDT documented as of this encounter H&P Notes * Alexandro Hall MD - 05/09/2023 8:25 AM EDT Anesthesia Pre Evaluation Note Review of Systems/Medical History: Patient chart/summary was reviewed. The patient has no known prior history of anesthetic complications Neuro/Psych: The patient has a history of psychiatric history Pulmonary: The patient has no history of COPD. Cardiovascular: Exercise Tolerance: good (4-7 METS). GI/Hepatic/Renal: The patient has no history of liver disease. Endocrine/Other: The patient has no history of diabetes. Physical Exam: Airway: Mallampati: II Neck ROM: full Cardiovascular: Rhythm: regular Rate: normal Pulmonary: No respiratory distress noted. Anesthesia Plan: ASA: 2 Plan: general Plan comments: Post op block prn Pre Medication Plan: midazolam Post Procedure Analgesia Plan: regional block Informed consent: Anesthetic plan and risks discussed with patient. Plan was discussed with relevant members of the anesthesia care team. documented in this encounter OR Notes * Anesthesia Postprocedure Evaluation - Alexandro Hall MD - 05/09/2023 5:02 PM EDT Patient: Haley Garcia Procedure Summary Date: 05/09/23 Room / Location: [address] [facility] [place] Anesthesia Start: 0950 Anesthesia Stop: 1253 Procedure: KNEE, ARTHROSCOPY ASSISTED REPAIR;POSTERIOR(PCL)LIGAMENT (Left: Knee) Diagnosis: Rupture of posterior cruciate ligament of left knee, sequela (Rupture of posterior cruciate ligament of left knee, sequela [S83.522S]) Surgeons: Zurdo Bell MD Responsible Provider: Alexandro Hall MD Anesthesia Type: general ASA Status: 2 Anesthesia Type: general Last vitals Vitals Value Taken Time BP 130/71 05/09/23 1330 Temp 36.9 ??C (98.4 ??F) 05/09/23 1254 Pulse 89 05/09/23 1333 Resp 16 05/09/23 1333 SpO2 94 % 05/09/23 1333 Vitals shown include unvalidated device data. Anesthesia Post Evaluation Patient location during evaluation: bedside Patient participation: complete - patient participated Level of consciousness: alert and awake Pain management: adequate Airway patency: patent Anesthetic complications: no Cardiovascular status: hemodynamically stable Respiratory status: spontaneous ventilation Hydration status: balanced * Anesthesia Procedure Notes - Alexandro Hall MD - 05/09/2023 1:58 PM EDT Associated Order(s): Regional Block Regional Block Start Time: 05/09/2023 1:38 PM Procedure End Time: Procedure: Regional Block Procedure End Time: Procedure: Regional Block Requesting Provider (Attending): Zurdo Bell MD Indication: post-op pain management per surgeon's request Checklist Section: Patient was examined. Chart was reviewed. Pertinent lab studies were reviewed. Staff Section Requesting Provider: Zurdo Bell MD Anesthesiologist/Attending: Alexandro Hall MD Performed by: Attending Informed Consent: Expectations of the block, including lack of efficacy, were reviewed, Risks of local aneshetic toxicity discussed, Care of the insensate extremity was reviewed and Risks of bleeding, infection, nerve damage (temporary/permanent) discussed [place] Protocol Consent obtained by: Written Consent given by: patient Immediately prior to the procedure a time out was called verifying correct consent, procedure, equipment, and site/side marked as required Nerve Block Section: Patient Position: supine Monitoring: blood pressure, pulse oximetry and ECG Prep: patient prepped in sterile fashion Site Prep: Betasept Injection: normal injection pressure Aspiration: frequent aspiration performed throughout Localization: ultrasound guidance Ultrasound Guidance: image placed in chart Laterality: left Block Section: Lower extremity: Femoral and Sciatic Sciatic: sub-gluteal Indication: Knee pain Injection Technique: single-shot Needle Section: Credit Union Teller: Ashley Gauge: 22 G Length: 80 mm Block Medications: ropivacaine (NAROPIN) 5 MG/ML 30 mL, dexamethasone (PF) (DECADRON) 0.4 mL injection (Mixture components: ropivacaine 0.5% Soln, 30 mL; dexamethasone (PF) 10 MG/ML Soln, 0.4 mL) - Perineural 22 mL - 05/09/2023 1:38:00 PM Comments: Femoral 8ml Sciatic 14 ml * Anesthesia Procedure Notes - Mckenna Ly CRNA - 05/09/2023 10:14 AM EDT Associated Order(s): OR Intubation/Airway Intubation/Airway Procedure Note Start Time: 05/09/2023 9:58 AM Procedure End Time: Procedure: OR Intubation/Airway Procedure End Time: Procedure: OR Intubation/Airway Staff Section Anesthesiologist/Attending: Alexandro Hall MD Resident/SHRIMPER: Mckenna Ly CRNA Performed By: LONA Procedure Details Difficult Airway: airway not difficult Preoxygenation: preoxygenation performed Mask difficulty assessment: 0 - not attempted Final Airway Details Final Airway Type: supraglottic airway Tube Size: 4 mm SGA Size: 4 Placement verified by: capnometry Number of Attempts: 1 Ventilation between attempts: none Number of other approaches attempted: 0 Comments: Easy atraumatic LMA intubation. Lips and teeth unchanged, tube secured. documented in this encounter Plan of Treatment Not on file documented as of this encounter Procedures Procedure Name Priority Date/Time Associated Diagnosis Comments REGIONAL BLOCK Routine 05/09/2023 1:38 PM EDT ANESTHESIA INTUBATION Routine 05/09/2023 10:14 AM EDT documented in this encounter Results * Regional Block (05/09/2023 1:38 PM EDT) Anatomical Region Laterality Modality Other Narrative 05/09/2023 1:38 PM EDT Alexandro Hall MD ? 05/09/2023 ??2:00 PM Regional Block ?? Start Time: 05/09/2023 1:38 PM Procedure End Time: Procedure: Regional Block Procedure End Time: Procedure: Regional Block Requesting Provider (Attending): Zurdo Bell MD Indication: post-op pain management per surgeon's request Checklist Section: Patient was examined. Chart was reviewed. Pertinent lab studies were reviewed. Staff Section ?? Requesting Provider: Zurdo Bell MD Anesthesiologist/Attending: Alexandro Hall MD Performed by: Attending Informed Consent: Expectations of the block, including lack of efficacy, were reviewed, Risks of local aneshetic toxicity discussed, Care of the insensate extremity was reviewed and Risks of bleeding, infection, nerve damage (temporary/permanent) discussed [place] Protocol ?? Consent obtained by: Written Consent given by: patient Immediately prior to the procedure a time out was called verifying correct consent, procedure, equipment, and site/side marked as required Nerve Block Section: Patient Position: supine Monitoring: blood pressure, pulse oximetry and ECG Prep: patient prepped in sterile fashion Site Prep: Betasept ??Injection: ??normal injection pressure Aspiration: frequent aspiration performed throughout Localization: ultrasound guidance ? Ultrasound Guidance: image placed in chart Laterality: left Block Section: ?? Lower extremity: Femoral and Sciatic ? Sciatic: sub-gluteal ? Indication: Knee pain Injection Technique: single-shot Needle Section: Credit Union Teller: [place] Gauge: 22 G Length: 80 mm Block Medications: ropivacaine (NAROPIN) 5 MG/ML 30 mL, dexamethasone (PF) (DECADRON) 0.4 mL injection (Mixture components: ropivacaine 0.5% Soln, 30 mL; dexamethasone (PF) 10 MG/ML Soln, 0.4 mL) - Perineural 22 mL - 05/09/2023 1:38:00 PM Comments: Femoral 8ml Sciatic 14 ml us Alexandro Hall MD ANESTHESIA ORDERABLES Final Re sult * OR Intubation/Airway (05/09/2023 10:14 AM EDT) Anatomical Region Laterality Modality Other Narrative 05/09/2023 10:14 AM EDT Mckenna Ly CRNA ? 05/09/2023 10:15 AM Intubation/Airway Procedure Note Start Time: 05/09/2023 9:58 AM Procedure End Time: Procedure: OR Intubation/Airway Procedure End Time: Procedure: OR Intubation/Airway Staff Section ?? Anesthesiologist/Attending: Alexandro Hall MD Resident/SHRIMPER: Mckenna Ly CRNA Performed By: SHRIMPER Procedure Details ?? Difficult Airway: airway not difficult Preoxygenation: preoxygenation performed Mask difficulty assessment: 0 - not attempted Final Airway Details Final Airway Type: supraglottic airway Tube Size: 4 mm SGA Size: 4 Placement verified by: capnometry Number of Attempts: 1 Ventilation between attempts: none Number of other approaches attempted: 0 Comments: Easy atraumatic LMA intubation. Lips and teeth unchanged, tube secured. us Alexandro Hall MD ANESTHESIA ORDERABLES Final Re sult documented in this encounter Visit Diagnoses Not on filedocumented in this encounter Administered Medications Inactive Administered Medications - up to 3 most recent administrations Medication Order MAR Action Action Date Dose Rate Site ceFAZolin (ANCEF) injection Intravenous, As needed, Starting on Fri05/09/23 at 1002, Until Fri05/09/23 at 1253, Anesthesia Intra-op Given 05/09/2023 10:02 AM EDT 2 g dexamethasone (DECADRON) 4 mg/mL injection Intravenous, As needed, Starting on Fri05/09/23 at 1002, Until Fri05/09/23 at 1253, Anesthesia Intra-op Given 05/09/2023 10:02 AM EDT 4 mg dexmedetomidine HCl (PRECEDEX) injection Intravenous, As needed, Starting on Fri05/09/23 at 1021, Until Fri05/09/23 at 1253, Anesthesia Intra-op Given 05/09/2023 12:02 PM EDT 4 mcg Given 05/09/2023 11:43 AM EDT 4 mcg Given 05/09/2023 10:21 AM EDT 8 mcg ePHEDrine 50 MG/10ML injection Intravenous, As needed, Starting on Fri05/09/23 at 1030, Until Fri05/09/23 at 1253, Anesthesia Intra-op Given 05/09/2023 10:30 AM EDT 10 mg fentaNYL (PF) (SUBLIMAZE) injection Intravenous, As needed, Starting on Fri05/09/23 at 1026, Until Fri05/09/23 at 1253, Anesthesia Intra-op Given 05/09/2023 12:02 PM EDT 25 mcg Given 05/09/2023 11:43 AM EDT 25 mcg Given 05/09/2023 10:26 AM EDT 50 mcg ketamine (KETALAR) injection Intravenous, As needed, Starting on Fri05/09/23 at 0950, Until Fri05/09/23 at 1253, Anesthesia Intra-op, Administer over 1 Minutes Given 05/09/2023 9:50 AM EDT 20 mg ketorolac (TORADOL) injection Intravenous, As needed, Starting on Fri05/09/23 at 1002, Until Fri05/09/23 at 1253, Anesthesia Intra-op Given 05/09/2023 10:02 AM EDT 30 mg lactated ringers infusion Intravenous, CONTINUOUS PRN, Starting on Fri05/09/23 at 0950, Until Fri05/09/23 at 1253, Anesthesia Intra-op Restarted 05/09/2023 12:37 PM EDT New Bag 05/09/2023 9:50 AM EDT 100 mL/hr lidocaine 2 % injection Other, As needed, Starting on Fri05/09/23 at 0957, Until Fri05/09/23 at 1253, Anesthesia Intra-op Given 05/09/2023 9:57 AM EDT 100 mg midazolam (VERSED) injection Intravenous, As needed, Starting on Fri05/09/23 at 0950, Until Fri05/09/23 at 1253, Anesthesia Intra-op Given 05/09/2023 9:50 AM EDT 2 mg ondansetron (ZOFRAN) injection Intravenous, As needed, Starting on Fri05/09/23 at 1002, Until Fri05/09/23 at 1253, Anesthesia Intra-op, Doses greater than 24 mg IV may prolong the QT interval. Given 05/09/2023 10:02 AM EDT 4 mg propofol (DIPRIVAN) injection (Final conc 10 mg/ml) Intravenous, As needed, Starting on Fri05/09/23 at 0957, Until Fri05/09/23 at 1253, Anesthesia Intra-op, Administer over 2 Minutes Given 05/09/2023 9:57 AM EDT 300 mg ropivacaine (NAROPIN) 30 mL, dexamethasone (PF) (DECADRON) 0.4 mL injection Perineural, Starting on 9/1/23 at 1338, Until Fri05/09/23 at 1400, Anesthesia Intra-op Given 05/09/2023 1:38 PM EDT 22 mL documented in this encounter Care Teams Can Conveyor Feeder Relationship Specialty Start Date End Date None, [place] PCP - General 02/22/17 documented as of this encounter
--- OUTSIDE RECORDS SUMMARY | 2024-09-04 14:37 | XMS_ITS | Clinical Summary ---
Author Organization [facility] Address [address] [place] [address] Care Team Providers Care Rn Transitional Name Role Phone None, [place] Primary Care Provider Unavailabl e Allergies No [...] (04/30/2023): Added automatically from request for surgery [id number] Left leg injury, initial encounter 2023 Social [...] 04/30/2023 3:48 PM EDT Plan of Treatment Health Maintenance Due Date Last Done Comments Tetanus Vaccination ? Adult (1 - Tdap) 2020 SARS-COV-2 (COVID-19) Vaccination ( season) 2024 12/03/2022, 08/30/2021, 12/22/2020, Additional history exists Influenza Vaccination (#1) 06/08/202406/12, 05/23/2017, 08/09/2016, Additional history exists HPV (Human Papilloma Virus) Vaccine Completed 12/11/2016, 07/13/2015, 04/27/2015 Pneumococcal Vaccine Aged Out No long er eligible based on patient's age to complete this topic Medical Devices Implanted Type Area Knitter Helper Device Identifier Shelf Expiration Date Model / Serial / Lot Implant, Other Implant, Other Left: Arm [place] Swivelock 4.75mm X 19.1mm Peek Arthrex Implanted:Qty: 1 on 05/09/2023 by Zurdo Bell MD at [facility] Internal Fixation Left: Knee Arthrex 2 04/07/2027 [id number] / / [id number] Care Teams Rn Transitional Relationship Specialty Start Date End Date None, [place] PCP - General 02/22/17
--- OUTSIDE RECORDS SUMMARY | 2024-09-04 14:37 | XMS_ITS | Encounter Summary ---
Author Organization [facility] Address [address] [place] [address] Care Team Providers Care Churn Tender Name Role Phone None, [place] Primary Care Provider Unavailabl e Reason for Referral * Radiology (Routine) - Closed Specialty Diagnoses / Procedures Referred By Contac t Referred To Contact Radiology Diagnoses Left leg injury, initial encounter PCL deficiency, knee, left Procedures MRI KNEE LT WO CONTRAST Edgard Beverly MD Phone: tel: fax: [address] [address] Phone: tel: fax: Referral ID Status Reason Start Date Expiration Date Visits Re quested Visits Authorized [id number] Closed 2023 05/24/2024 1 1 Reason for Visit * Radiology (Routine) - Closed Specialty Diagnoses / Procedures Referred By Contac t Referred To Contact Radiology Diagnoses Left leg injury, initial encounter PCL deficiency, knee, left Procedures MRI KNEE LT WO CONTRAST Edgard Beverly MD Phone: tel: fax: [place] [address] [employer] [address] [address] Phone: tel: fax: Referral ID Status Reason Start Date Expiration Date Visits Re quested Visits Authorized [id number] Closed 2023 05/24/2024 1 1 Encounter Details Date Type Department Care Team (Latest Contact Info) Description 2023 7:55 PM EDT - 2023 11:59 PM EDT Hospital Encounter [facility] - [address] [facility] 1st [place] [address] Edgard Beverly MD [address] [place] [address] Left leg injury, initial encounter; PCL deficiency, knee, left Discharge Disposition: Home or Self Care Social [...] as needed for pain. Take with food 3 documented as of this encounter Plan of Treatment Not on file documented as of this encounter Procedures Procedure Name Priority Date/Time Associated Diagnosis Comments MRI KNEE LT WO CONTRAST Routine 2023 8:54 PM EDT Left leg injury, initial encounter PCL deficiency, knee, left documented in this encounter Results * MRI KNEE LT [...] knee without intravenous or intra-articular contrast. COMPARISON: [facility] 2023 FINDINGS: [place]: Normal medial and lateral [...] knee without intravenous or intra-articular contrast. COMPARISON: [facility] 2023 FINDINGS: [place]: Normal medial and lateral [...] M.D. Attending Musculoskeletal Radiologist Edgard Beverly MD IMG MRI ORDERABLES Final Result documented in this encounter Visit Diagnoses Diagnosis Left leg injury, initial encounter PCL deficiency, knee, left documented in this encounter Care Teams Churn Tender Relationship Specialty Start Date End Date None, [place] PCP - General 02/22/17 documented as of this encounter
--- OUTSIDE RECORDS SUMMARY | 2024-09-04 14:37 | XMS_ITS | Encounter Summary ---
Author Organization [facility] Address [address] [place] [address] Care Team Providers Care Maintenance Technician 2Nd Shift Name Role Phone None, [place] Primary Care Provider Unavailabl e Reason for Visit * Auth/Cert (Routine) Specialty Diagnoses / Procedures Referred By Marina t Referred To Contact Diagnoses Rupture of posterior cruciate ligament of left knee, sequela Rupture of posterior cruciate ligament of left knee, sequela [S83.522S] Procedures ND KNEE SCOPE,AID POST CRUC REPAIR KNEE, ARTHROSCOPY ASSISTED REPAIR;POSTERIOR(PCL)LIGAMENT Zurdo Bell MD [address] [facility] [address] [place] [address] Phone: tel: fax: Referral ID Status Reason Start Date Expiration Date Visits Re quested Visits Authorized [id number] 99 99 Encounter Details Date Type Department Care Team (Late st Contact Info) Description 05/09/2023 9:35 AM EDT - 05/09/2023 12:[address] [facility] [address] Operating Room [address] Ground Floor, [address] [place] [address] Zurdo Bell MD [address] [place], [place] [id number] KNEE, ARTHROSCOPY ASSISTED REPAIR;POSTERIOR(PCL)L IGAMENT [72085 (CPT??)] Surgery Details Date/Time Status Location OR Service Patient Class Case Cl ass Case Type Trauma Case? 05/09/2023 9:35 AM Posted [facility] [address] OR [facility] OR 04 Orthopedics Outpatient Elective Panel 1 Procedure LRB Anes Op Region Wound Class Comments KNEE, ARTHROSCOPY ASSISTED REPAIR;POSTERIOR(PCL)LIGAMENT Left General Anesthesia Knee Clean Surgeon Surgeon Role Service Panel Zurdo Bell MD Primary Orthopedics 1 Special Needs OPSC or IVYPCL retractor documented in this encounter Social History Tobacco [...] Sign Reading Time Taken Comments Blood Pressure 127/78 05/09/2023 7:35 AM EDT Pulse 72 05/09/2023 7:35 AM EDT Temperature - - Respiratory Rate 13 05/09/2023 7:35 AM EDT Oxygen Saturation 100% 05/09/2023 7:35 AM EDT Inhaled Oxygen Concentration - - Weight [...] not provided. Acetaminophen (Tylenol) is an effective nvwx-ciu-owkkumo pain medication that can be used with [...] opioids for pain, you should take an sqca-rea-sbjvocx gentle laxative such as Senna or Miralax. [...] the clinic or the orthopedic surgery resident international account executive. Daytime calls should be directed to the Sports Medicine Clinic at [phone]. Night-time and weekend calls should be directed to the Orthopedic surgery resident international account executive, who canbe reached through the [facility] tube building machine operator at . FREQUENTLY ASKED QUESTIONS WHAT DAILY ACTIVITIES CAN [...] call the clinic or the orthopedic resident international account executive. Adult Post Anesthesia Discharge Instructions: {ANE Post Anesthesia Discharge Instructions - Anesthesia Type:36623} ALL ADULTS: Do not drive a car [...] questions about your surgery AFTER HOURS call: [facility] toll free number: or [facility] [phone] and ask for the resident international account executive for your surgeon For questions about your anesthesia: Call or [facility] [phone] and ask to speak with the resident engineer international account executive (pager number [phone]) You received a dose of acetaminophen prior to discharge. Your next dose of medication containing acetaminophen (Tylenol, [place], Percocet) may be taken after 6 PM. [...] oxyCODONE (ROXICODONE) 5 MG immediate release tabletIndications:Ac jessie Pain,Postoperative Pain Take 1 tablet by mouth [...] 28 tablet 05/09/2023 12:29 PM EDT 05/09/2023 3 ketorolac (TORADOL) 10 MG tabletIndications:Af tercare following surgery of the musculoskeletal system Take 1 tablet by mouth every 6 hours as needed for up to 5 days for pain. 20 tablet 05/09/2023 12:29 PM EDT 05/09/2023 3 documented as of this encounter Progress Notes * Esther Sanabria PT - 05/09/2023 3:49 [...] care of hinged knee brace per MD KRAUSE instructions. PT spoke with Dr. Bell on [...] pt and her mother. All questions answered. * Alexandro Hall MD - 05/09/2023 2:01 PM EDT Regional Nerve Block Follow Up Note SURGICAL INFO: Procedure Summary Date: 05/09/23 Room / Location: [facility] OR [address] [place] [address] Orthopedic [facility] Anesthesia Start: 949 Anesthesia Stop: 1253 Procedure: KNEE, ARTHROSCOPY ASSISTED REPAIR;POSTERIOR(PCL)LIGAMENT (Left: Knee) Diagnosis: Rupture of posterior cruciate ligament of left knee, sequela (Rupture of posterior cruciate ligament of left knee, sequela [S83.525K]) Surgeons: Zurdo Bell MD Responsible Provider: Alexandro Hall MD Anesthesia Type: general ASA Status: 2 BLOCK INFO: Attending: Isabel Time performed: 14:01 Date performed: 05/09/23 Laterality: left Block: 8 ml of 0.5% Ropivacaine with PF Dexamethasone (4mg/30ml) for Lower Extremity: Femoral block Block: 14 ml of 0.5% Ropivacaine with PF Dexamethasone (4mg/30ml) for Lower Extremity: Sciatic block PHONE CALL: Date: 05/21/2023 Time: 14:01 POD#: 12 Contact: Called at [phone] (home) . Duration of Block: 24 hours While working, block took away: most of the pain Residual numbness/tingling/weakness in area of the block? No Injection site irritation: No PONV: None Overall rating of nerve block experience: 10 (0 = extremely dissatisfied; 10 = extremely satisfied) Assessment/Plan: spoke with patient Patient recovering appropriately and no further follow up with anesthesia team is needed. Alexandro Hall * Shavon Prajapati RN - 05/09/2023 7:33 AM EDT Being of child-bearing age and not post-menopausal, the patient was offered the opportunity to havea urine test before surgery. Patient/guardian declined & understands that if , the administration of anesthesia presents risks to the fetus. * Cayla Oliva RN - 04/30/2023 4:57 PM EDT Anesthesia Perioperative Medicine Clinic (aka PET) [facility] This patient has been evaluated by the Perioperative Medicine (aka [facility]) triage process. Based on this patient's comorbidities and the planned surgery, this patient does not require additional pre-operative evaluation via in-person visit or Telehealth. This patient may proceed to surgery without further risk stratification. The Perioperative Medicine Team documented in this encounter H&P Notes * [...] the supervision of Dr. Arabella Chun PA-C [facility] Sports Medicine Division [...] have edited the operative note as appropriate. Zurdo Bell MD Sports Medicine / Arthroscopy of the Shoulder, Hip, and Knee Driving School Instructor, Orthopaedic Surgery [facility] - [address] [place] [address] ([facility]) [phone] (F) [phone] documented in this encounter Plan of Treatment [...] 1 HOUR (05/09/2023 12:44 PM EDT) Narrative ShawandaAlexandroVikas - 05/09/2023 12:46 PM EDT 38.4 of fluoro time was provided for Guidance. us Zurdo Bell MD IMG FL CANNED REPORT Rachel l Result documented in this encounter Visit Diagnoses Diagnosis Rupture of posterior cruciate ligament of left knee- Primary Aftercare following surgery of the musculoskeletal system Aftercare following surgery of the musculoskeletal system, NEC Rupture of posterior cruciate ligament of left knee, sequela documented in this encounter Administered Medications Inactive [...] MD) documented in this encounter Care Teams Maintenance Technician 2Nd Shift Relationship Specialty Start Date End Date None, [place] PCP - General 02/22/17 documented as of this encounter
--- OUTSIDE RECORDS SUMMARY | 2024-09-04 14:37 | XMS_ITS | Encounter Summary ---
Author Organization [facility] Address [address] [place] [address] Care Team Providers Care President And Ceo Name Role Phone None, [place] Primary Care Provider Unavailabl e Encounter Details Date Type Department Care Team (Late st Contact Info) Description 2023 Procedure Pass [facility] - [place] [address] [place] [address] Social History Tobacco Use Types Packs/Day Years [...] Sign Reading Time Taken Comments Blood Pressure - - Pulse - - Temperature - - Respiratory Rate - - Oxygen Saturation - - Inhaled Oxygen Concentration - - Weight 72.6 kg (160 lb) 2023 8:13 PM EDT Height 165.1 cm (5' 5) 2023 8:13 PM EDT Body Mass Index 26.63 2023 8:13 PM EDT documented in this encounter Plan of Treatment Not on file documented as of this encounter Visit Diagnoses Not on filedocumented in this encounter Care Teams President And Ceo Relationship Specialty Start Date End Date None, [place] PCP - General 02/22/17 documented as of this encounter
--- OUTSIDE RECORDS SUMMARY | 2024-09-04 14:37 | XMS_ITS | Encounter Summary ---
Author Organization [facility] Address [address] [place] [address] Care Team Providers Care Poultry Pathologist Name Role Phone None, [place] Primary Care Provider Unavailabl e Reason for Visit * Reason Onset Date Comments Other 05/14/2023 Encounter Details Date Type Department Care Team ([facility] st Contact Info) Description 05/14/2023 Telephone Sports Medicine, Orthopedic [address] [facility] 1st Floor, [address] [place] [address] Zurdo Bell MD [address] [facility] [address] [place], [place] [id number] Other Social History Tobacco Use Types Packs/Day [...] as of this encounter Progress Notes * Ellen Navarrete RN - 05/14/2023 9:22 AM EDT S/p left PCL avulsion repair 05/09/[address] Bell. Called and spoke with pt. Temperature today is 99F. Offered reassurance, encouraged po fluids and mobilization. Advised to contact our office if her temperature goes up to 102F or if she develops redness, drainage, swelling. She should wear brace as instructed. OK to leave incisions open to air as long as she does not haveany drainage. OK to stop oxycodone (has weaned to 5 mg every 12 hours, but having no pain). She verbalized understanding. * Benita Gomez - 05/14/2023 9:03 AM EDT CLARIFICATION/MEDICAL QUESTION Patient needs clarification regarding: Patient had surgery with Gwathmesharon on Wednesday 05/09. Patient hasfever and also has other questions regarding post op care. Patient would like a call back from clinic [phone] FYI: PCL knee surgery 05/09 [facility] Is it okay to respond to patient via [facility]? No Call is considered ROUTINE PRIORITY and route to appropriate personnel: Patient advised patient calls will be returned as soon as possible and within 24 hours. documented in this encounter Plan of Treatment Not on file documented as of this encounter Visit Diagnoses Not on filedocumented in this encounter Care Teams Poultry Pathologist Relationship Specialty Start Date End Date None, [place] PCP - General 02/22/17 documented as of this encounter
--- OUTSIDE RECORDS SUMMARY | 2024-09-04 14:37 | XMS_ITS | Encounter Summary ---
Author Organization [facility] Address [address] [place] [address] Care Team Providers Care Assistant City Attorney Name Role Phone None, [place] Primary Care Provider Unavailabl e Encounter Details Date Type Department Care Team (Late st Contact Info) Description 05/09/2023 Procedure Pass [facility] [address] [facility] [address] [facility] [address] [facility], [address] [place] [address] Social History Tobacco Use Types Packs/Day Years [...] on filedocumented in this encounter Care Teams Assistant City Attorney Relationship Specialty Start Date End Date None, [place] PCP - General 02/22/17 documented as of this encounter
--- OUTSIDE RECORDS SUMMARY | 2024-09-04 14:37 | XMS_ITS | Encounter Summary ---
Author Organization [facility] Address [address] [place] [address] Care Team Providers Care Electrical Line Splicer Name Role Phone None, [place] Primary Care Provider Unavailabl e Encounter Details Date Type Department Care Team (Late st Contact Info) Description 12/15/2023 Orders Only Spine Care, Orthopedic Center [address] [facility] 2nd Floor, [address] [place] [address] Cindy Nichole, DAYAMI [address] [place] [address] Musculoskeletal problem (Primary Dx); Back pain, unspecified back location, unspecified back pain laterality, unspecified chronicity Social History Tobacco Use Types Packs/Day Years [...] documented as of this encounter Results * XR SCOLIOSIS STANDING [...] M.D. Attending Physician, Radiology Adri Tang PA-C [facility] ORDERAB LES Final Result documented in this encounter Visit Diagnoses Diagnosis Musculoskeletal problem- Primary Disorders of soft tissue, unspecified Back pain, unspecified back location, unspecified back pain laterality, unspecified chronicity Back pain, unspecified back location, unspecified back pain laterality, unspecified chronicity documented in this encounter Care Teams Electrical Line Splicer Relationship Specialty Start Date End Date None, [place] PCP - General 02/22/17 documented as of this encounter
--- OUTSIDE RECORDS SUMMARY | 2024-09-04 14:37 | XMS_ITS | Encounter Summary ---
Author Organization [facility] Address [address] [place] [address] Care Team Providers Care Filament Cutter Name Role Phone None, [place] Primary Care Provider Unavailabl e Reason for Referral * Consult and Treat (Routine) - Authorized Specialty Diagnoses / Procedures Referred By Marina samuel Referred To Contact Physical Therapy Diagnoses Neck pain Myofascial pain Adri Tang PA-C [address] [place] [address] Phone: tel: fax: Referral ID Status Reason Start Date Expiration Date V isits Requested Visits Authorized [id number] Authorized 12/24/2023 01/23/2025 99 99 Reason for Visit * Reason Comments Initial Visit * Consult and Treat (Routine) - Authorized Specialty Diagnoses / Procedures Referred By Marina samuel Referred To Contact Physician Chief Operating Engineer / Orthopedic Surgery Diagnoses iv/ back pain Procedures SPINE INITIAL VISIT Self, [place] x Adri Tang PA-C [address] [place] [address] Phone: tel: fax: Referral ID Status Reason Start Date Expiration Date V isits Requested Visits Authorized [id number] Authorized 12/24/2023 01/23/2025 99 99 Encounter Details Date Type Department Care Team (Late st Contact Info) Description 12/24/2023 1:00 PM EDT Office Visit Spine Care, Orthopedic Center [address] [facility] 2nd Floor, [address] [place] [id number] Ravinder Hines MD [address] [place] [address] Adri Tang PA-C [address] [place] [address] Neck pain (Primary Dx); Myofascial pain Social History Tobacco Use Types Packs/Day Years [...] as of this encounter H&P Notes * Adri Tang PA-C - 12/24/2023 1:00 PM EDT ORTHO SPINE CLINIC: INITIAL VISIT H&P SUBJECTIVE: Haley Gacria was referred by Self, [place]. HPI: Haley Garcia is a RHD 23 y.o. female who presents to the [facility] today for an initial visit with a chief complaint of neck pain that has been present for about 10 months with no known injury. Recently had knee surgery at [facility] so wanted to come here to have her neck looked at before going anywhere else. Today she describes posterior neck pain localized to the cervicothoracic junction and paraspinals. No radicular symptoms or weakness. 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 Tries to work on her posture. Denies bowel/bladder dysfunction or any other red flag symptoms. Interventions: Heat/ice application: None Activity modification: None Medication use: [place] balm with temporary improvement IBU helps some Physical therapy: None Chiropractics: None Spine injections: None Hx of spine surgeries: None Of note: - PMH is significant for S/P Left knee arthroscopic PCL avulsion repair DOS 05/09/23, depression. - Tobacco use: never - Personal History of DVT/PE: None REVIEW OF SYSTEMS: Negative for any other constitutional, respiratory, cardiovascular, integumentary, eyes, ENT, heme,lymph, GI, , psych, neuro and other musculoskeletal complaints besides those mentioned in HPI above. OBJECTIVE: Physical Exam: Alert and oriented x3 NAD Skin intact. Normal vocal tone and milton. GAIT: Ambulates with normal gait without use of any assistive devices. Tandem gait: Stable without evidence of ataxia. CERVICAL SPINE: Non-tender No palpable masses. ROM full UPPER EXTREMITY NEUROVASCULAR EXAMINATION: Sensation: Grossly intact to light touch C5-T1 Bilateral upper extremity. No obvious intrinsic or thenar atrophy. Bilateral UE warm and well perfused. MOTOR Deltoid (C5) EF (C5-6) EE (C7) WF (C7) WE (C6) FE (C7) FF/Production Superintendent Hydro (C8) FAbd (T1) LEFT 5 5 5 5 5 5 5 5 RIGHT 5 5 5 5 5 5 5 5 SPECIAL TESTING: Zapien's sign: negative bilaterally. Reflexes: Right Left Biceps 2+ 2+ Brachioradialis 2+ 2+ Triceps 2+ 2+ Most Recent Imaging (& EMG): I have independently reviewed & interpreted the following diagnostic studies in clinic today: XR Scoliosis (12/24/23) and my findings are reversal of the normal cervical lordosis otherwise unremarkable. ASSESSMENT & PLAN: Diagnoses: Neck pain Myofascial pain Patient presented today for neck pain, which is chronic and worsening over time . I thoroughly reviewed 's past medical history which is notable for S/P Left knee arthroscopic PCL avulsion repair DOS 05/09/23, depression; We completed a series of Scoli radiographs today which I independently interpreted and educated patient, answering all of her questions. Her imaging is reassuring for no significant degenerative changes or acute process. At this time I am referring patient to Physical therapy for the appropriate core strengthening/stability exercises, neural gliding exercises, and pain reduction modalities as indicated. We discussed benefits of physical therapy to include but not limited to pain relief/improvement andimprovement in gait and balance. There is also a chance that pain increases outside of the normal soreness from new exercises as physical therapy progresses, we advised pt to contact us if this occurs. If she does not find relief with PT may c/b for MRI. Through joint decision making we have concluded to proceed with the following treatment plan. Ms. Garcia understands and is amenable to this plan. She was discharged in a stable condition with no concerning red flag signs or symptoms. PLAN SUMMARY: PT referral Follow up with Spine Center PRN - may c/b for MRI if no better with PT Adri Boykin)[facility] 2732 Note: Parts of this document have been dictated using computerized voice ski maker software. Consequently, it may contain unrecognized errors, which are inherent to utilization of this technology. Please contact for clarification of any wording that is of question. documented in this encounter Plan of Treatment Scheduled Referrals Name Type Priority Associated Diagnoses Order Schedule Ambulatory referral to Physical Therapy Outpatient Referral Routine Neck pain Myofascial pain Ordered: 12/24/2023 documented as of this encounter Visit Diagnoses Diagnosis Neck pain- Primary Cervicalgia Myofascial pain Mylagia and myositis, unspecified documented in this encounter Care Teams Filament Cutter Relationship Specialty Start Date End Date None, [place] PCP - General 02/22/17 documented as of this encounter
--- OUTSIDE RECORDS SUMMARY | 2024-09-04 14:37 | XMS_ITS | Encounter Summary ---
Author Organization [facility] Address [address] [place] [address] Care Team Providers Care Hypnotherapist Name Role Phone None, Krebs Primary Care Provider Unavailabl e Reason for Referral * Evaluate and Treat (Routine) - Closed Specialty Diagnoses / Procedures Referred By Marina samuel Referred To Contact Physical Therapy Diagnoses Rupture of posterior cruciate ligament of left knee, sequela Avulsion of ligament with bony fragment Pastor Quinonez MD Referral ID Status Reason Start Date Expiration Date Visits Re quested Visits Authorized [id number] Closed 04/30/2023 05/30/2024 52 52 Reason for Visit * Reason Comments Initial Visit * Consult and Treat (Routine) - Closed Specialty Diagnoses / Procedures Referred By Marina samuel Referred To Contact Orthopedic Surgery / Sports Medicine Diagnoses Left leg (tibia) injury 04/19/23 Procedures INITIAL VISIT Self, Krebs x Zurdo Bell MD [address] [address] Phone: tel: fax: Referral ID Status Reason Start Date Expiration Date Visits Re quested Visits Authorized [id number] Closed 04/30/2023 05/30/2024 99 99 Encounter Details Date Type Department Care Team (Late st Contact Info) Description 04/30/2023 3:55 PM EDT Office Visit Sports Medicine, [facility] [address], [address] [place] [address] Zurdo Bell MD [address] [address] Rupture of posterior cruciate ligament of left knee, sequela (Primary Dx); Avulsion of ligament with bony fragment Social History Tobacco Use Types Packs/Day Years [...] Sign Reading Time Taken Comments Blood Pressure 122/73 04/30/2023 3:48 PM EDT Pulse 70 04/30/2023 3:48 PM EDT Temperature - - Respiratory Rate - - Oxygen Saturation 100% 04/30/2023 3:48 PM EDT Inhaled Oxygen Concentration - - Weight 72.6 kg (160 lb) 04/30/2023 3:48 PM EDT Height 165.1 cm (5' 5) 04/30/2023 3:48 PM EDT Body Mass Index 26.63 04/30/2023 3:48 PM EDT documented in this encounter Patient Instructions * Patient Instructions* José Luis Sena RN - 04/30/2023 3:55 PM EDT Follow up appointment: 10-14 days after surgery Activity/Restrictions: Crutch and/or Brace use with weight bearing restrictions up to 6 weeks aftersurgery. Driving is not recommended while restrictions are in place. Script (prescription) refills: will be electronically sent to your preferred pharmacy on the day ofsurgery Therapy: to begin 2-3 days postop Return to work/school: based on recovery and once off all narcotics You will need a responsible adult to drive you on the day of surgery (family member and/or friend).Other transportation, such as Medicaid taxi, is not approved for the day of surgery, unless a family member/friend is accompanying you. If you arrive to surgery without a known adult, you will be canceled. Please identify your support person for postoperative care to the clinic nurse. If you live alone, you will need arranged care established pre-operatively for the first few days after surgery. Getting ready for surgery (For Adult Patients) Thank you for choosing us for your surgery. We are here to provide you and your family with safe, high-quality healthcare. For your safety, please be sure you have all your questions answered before surgery. The Pre-Anesthesia Team will review procedures case by case to determine if an evaluation (in person/phone) is indicated. Criteria is based off of medical history and procedure type. If an evaluation is necessary, the RN will contact you for scheduling prior to your surgical date. Please follow the instructions below. Carefully review all information. If, for any reason, you do not plan to have surgery or get sick with a cold, fever, flu symptoms, call your surgeon right away. Information about surgery and care at [facility] is available at [email or web address] Pre-surgery Checklist Time to Arrive The nurse will begin making calls (3) days before your surgery. Please be sure we know the best phone number to use to contact you. The nurse will be available to give your instructions and arrival time until 6:00pm on the day before your surgery. Call [phone] if you have not received a call by noon the day before your surgery. Please leave a voice mail and the nurse will call you back. On the day of your surgery, if you have a cold, cough, fever or flu symptoms, please call [phone]. Staff arrives at 5:30am. If you get voice mail, please leave a message. Between 6:00pm and 5:30am call [phone] ask for the Resident button buttonhole marker for the Surgeon???s name above. FAILURE TO FOLLOW ALL INSTRUCTIONS MAY RESULT IN CANCELLATION OF SURGERY. Please take the time to check off these important points to remember before your surgery. NO FOOD OR BEVERAGES (except clear liquids) AFTER MIDNIGHT; this includes gum and tobacco. After midnight you may drink water, apple juice, or Gatorade until two hours before your arrival time. For example if you are told to arrive at 8am you can drink until 6am. MEDICATIONS: 2 weeks before surgery I will stop Vitamins and Supplements (including herbs)- may continue taking Vitamin D, Iron, and/or Multivitamin 1 week before surgery I will stop Ibuprofen (Motrin??, Advil??, Aleve??, any NSAID) OTHER INSTRUCTIONS: You MUST have a responsible adult with you on the day of surgery (for a child it must be a parent or legal guardian). You may NOT DRIVE after surgery or sedation. Follow any special instructions given by your surgeon including how to shower the day before surgery. Please wear comfortable, loose-fitting clothes that will be easy to put on after surgery. Bring comfort items for children. Outpatient physical therapy may be part of your follow up care after the surgery you are planning. According to Raissa Law, you will be required to select a physical therapy provider prior to beingdischarged from the hospital or surgery center. We recommend you begin investigating your options for physical therapy providers at this time. If you have any questions about this, please do not hesitate to ask your care team. DVT Prophylaxis A blood clot or Deep Vein Thrombosis (DVT) is a blockage of your vein, often in the leg or thigh. Signs of a DVT are persistent swelling, dusky skin or redness, tenderness, throbbing or cramping. A pulmonary embolus (blood clot in the lung) causes chest pain and difficulty breathing. Depending on the type of surgery you are having, you may be asked to take medication or wear special stockings to prevent a blood clot. Medications given to prevent DVT???s are Aspirin, Eliquis??, Xarelto??, Lovenox??, and others. If you have a history of DVT???s or blood clotting problems, or if you have a family history of blood clots, please notify your surgeon. ANESTHESIA: On the day of surgery you will meet your anesthesia team which will include an attending anesthesiologist and either a resident anesthesiologist (a medical doctor completing their anesthesiology training) or a REVIEW TRAINER (Certified Registered Nurse Fig Washer). There are two main types of anesthesia used in surgeries, or a combination of these two. One is general anesthesia. This is a combination of medications administered by the anesthesia teamso that you will be completely asleep. The other is a local anesthesia, regional nerve block or spinal block. This is when they numb a nerve in your leg/arm making the whole extremity go numb. They may numb a nerve in the area getting surgery. The numbness may last up to 24 hours. These blocks may also be used together with sedation or with general anesthesia. As the block wears off, you may feel numbness and tingling in your extremity, you will need to start taking your pain medication. PAIN MEDICATION: On the day of surgery, you may be given a prescription for a pain medication or before you go home from hospital. Please take medication as prescribed. You may also use over the counter medicines (Tylenol) to manage your pain before and after surgery. WHAT TO BRING THE DAY OF SURGERY: Glasses/contact lens/hearing aid cases (if you use them) Advance Directive (if you have a completed one or we can give you a blank form) CPAP machine (if you have a diagnosis of sleep apnea) Please remove all jewelry and piercings prior to arrival Do not bring any valuables; we are not responsible for lost or damaged electronics or belongings SURGERY SAFETY STEPS: Each time we care for you we will check your armband and verify your identity (name and date of ). Your Surgical Consent form should be reviewed with you and signed showing your agreement to the surgery; understanding of the need for the surgery; and the risks. We will verify what surgery you are having and location. If surgery involves right or left, your physician will annalee the site on your body. A time-out check is completed in the OR before surgery to confirm the correct patient, correct procedure and correct location (site). Please feel free to ask all our team members if they washed their hands. We prevent infections by careful hand washing as well as the provision of antibiotics and/or surgical scrub (if needed). documented in this encounter Progress Notes * Zurdo Bell MD - 04/30/2023 3:55 PM EDT Orthopaedics Sports Medicine Knee Initial Visit Referring MD: Self, Krebs Chief Complaint Patient presents with Left Knee - Initial Visit History of Present Illness: Haley Garcia is a 23 y.o. female - what: left knee - when: 2 weeks ago - how: awkward landing on left knee - Haley Garcia presents with left knee pain and dysfunction that developed approximately 2 weeks ago. She jumped into water which turned out to be deeper than she expected and landed awkwardly on her left knee. She wasn't sure what she hit but has since had a lot of pain. She is able to bear weight but unable to fully straighten or bend her knee. She currently uses crutches to ambulate. - Treatment to date: activity modification, NSAIDs Pain Ratin/10 Past Medical History: Past Medical History: Diagnosis Date Anxiety Depression Past Surgical History: Past Surgical History: Procedure Laterality Date TONSILLECTOMY Medications: Current Outpatient Medications on File Prior to Visit Medication Sig Dispense Refill buPROPion 24 HR (WELLBUTRIN XL) 300 MG [...] by mouth daily. No current facility-administered medications on file prior to visit. Allergies: No Known Allergies Social History: home town: [place], [place] alcohol use: She reports current alcohol use of about 5.0 standard drinks per week. tobacco use: She reports that she has never smoked. She has never used smokeless tobacco. Social History Tobacco Use Smoking status: Never Smokeless tobacco: Never Substance Use Topics Alcohol use: Yes Alcohol/week: 5.0 standard drinks Types: 5 Standard drinks or equivalent per week Drug use: Not on file Review of systems: recent illness, fevers, shakes, or chills: no recent chest pain or dyspnea on exertion: no recent shortness of breath or difficulty breathing: no recent GI illness: no recent blood clot or bleeding problems: no Stop Bang Score 04/30/2023 JORGE ALBERTO Total 0 Physical Examination: Estimated body mass index is 26.63 kg/m?? as calculated from the following: Height as of this encounter: 1.651 m (5' 5). Weight as of this encounter: 72.6 kg (160 lb). General 23 y.o. female in no acute distress Alert and oriented; normal mood, appropriate affect Standing exam stance: normal stance, no significant malalignment or limb length discrepancy gait: no limp Knee examination +Bruising ROM Strength (out of 5) Left Left Extension 0 5 Flexion 135 5 Tenderness Left Patellofemoral - Medial joint - Lateral joint - Pes bursa - Patella tendon - Other - Special Tests Left Effusion - Crepitus - Kassi - Patella apprehension - Varus stress - Valgus stress - Martín - Pivot shift - Posterior sag + Posterior drawer + Neurovascular exam - motor function grossly intact bilaterally to hip flexion, knee extension and flexion, ankle dorsiflexion and plantarflexion - sensation intact to light touch bilaterally to femoral, tibial, tibial and peroneal distributions - symmetrical pedal pulses Imaging: XR left knee (2023) Impression Acute, displaced fracture of the posterior tibial eminence, compatible with PCL avulsion fracture. Independent Interpretation of Tests: I have personally reviewed the left knee XR and my findings are: displaced PCL avulsion fracture MRI left knee wo contrast (2023) Impression 1. Bony comminuted avulsion fracture of the PCL attachment on the posterior tibial plateau (series 12 image 23 and series 10 image 16). 2. Partial thickness tear of the semimembranosus tendon insertion on the tibia. Independent Interpretation of Tests: I have personally reviewed the left knee MRI and my findings are: PCL avulsion Impression: 23 y.o. female with left knee PCL avulsion fracture Plan: We discussed in detail the diagnosis, differential diagnosis, and options for further diagnosis andtreatment. We discussed operative and non-operative treatment options including the risks and benefits of each. The patient is a candidate for left knee arthroscopy with PCL repair. We reviewed the proposed procedure in detail, which included discussion of risks and benefits, techniques, and possible complications of the procedure. Risks include infection, bleeding, damage to artery and nerves, continual pain and possible stiffness, and blood clots. We reviewed the post-operative restrictions, recovery period, and rehabilitation. All patient questions were answered. The consent was read and signed. We will move forward with scheduling and preparation for the procedure. Postoperative pain medication script not provided in clinic today. ASA for 2 weeks post-operatively per DVT guidelines Follow up for surgery. Low Risk - (ASA 2 weeks) After a thorough discussion, the patient has elected to proceed with the above plan and will contact me with any further questions or concerns. The documentation recorded by the scribe accurately reflects the service I personally performed andthe decisions made by me. Zurdo Bell MD Zurdo Bell MD Sports Medicine / Arthroscopy of the Shoulder, Hip, and Knee Data Report Analyst, Orthopaedic Surgery [facility] - [address] [place] [address] (clinic) [phone] (F) [phone] cc: Referring provider Krebs Self X Primary care provider Krebs None No address on file documented in this encounter Plan of Treatment Scheduled Referrals Name Type Priority Associated Diagnoses Order Schedule Ambulatory referral to Physical Therapy Outpatient Referral Routine Rupture of posterior cruciate ligament of left knee, sequela Avulsion of ligament with bony fragment Ordered: 04/30/2023 documented as of this encounter Visit Diagnoses Diagnosis Rupture of posterior cruciate ligament of left knee, sequela- Primary Avulsion of ligament with bony fragment documented in this encounter Care Teams Hypnotherapist Relationship Specialty Start Date End Date None, Krebs PCP - General 02/22/17 documented as of this encounter
--- OUTSIDE RECORDS SUMMARY | 2024-09-04 14:37 | XMS_ITS | Encounter Summary ---
Author Organization [facility] Address [address] [place] [address] Care Team Providers Care Copper Miner Name Role Phone None, [place] Primary Care Provider Unavailabl e Encounter Details Date Type Department Care Team (Late st Contact Info) Description 05/09/2023 Pharmacy Visit [facility] Orthopedics [facility] [address] [facility] 1st Floor, [address] [place] [address] Social History Tobacco Use Types [...] on filedocumented in this encounter Care Teams Copper Miner Relationship Specialty Start Date End Date None, [place] PCP - General 02/22/17 documented as of this encounter
--- OUTSIDE RECORDS SUMMARY | 2024-09-04 14:37 | XMS_ITS | Encounter Summary ---
Author Organization [facility] Address [address] [place] [address] Care Team Providers Care Barytes Grinder Name Role Phone None, [place] Primary Care Provider Unavailabl e Encounter Details Date Type Department Care Team (Late st Contact Info) Description 05/23/2023 MyChart Medical Advice Sports Medicine, Orthopedic Center [facility] [address] [facility] 1st Floor, [address] [place] [address] [employer], [facility] Provider Possible infection after stitches were removed Social History Tobacco Use Types Packs/Day Years [...] as of this encounter Progress Notes * Kalin Chun PA-C - 05/23/2023 1:41 PM EDT Keflex sent - F/U if incision continues to cause concern * Elsa Weathers RN - 05/23/2023 11:19 AM EDTFrom: Haley Garcia To: [facility] [address] Sent: 05/23/2023 11:16 AM EDT Subject: Possible infection after stitches were removed Hello! I had PCL surgery with Dr. Bell and I noticed that one of my incisions was looking like it could be infected. I had my stitches out two days ago. Haley documented in this encounter Plan of Treatment Not on file documented as of this encounter Visit Diagnoses Diagnosis Aftercare following surgery of the musculoskeletal system- Primary Aftercare following surgery of the musculoskeletal system, NEC documented in this encounter Care Teams Barytes Grinder Relationship Specialty Start Date End Date None, [place] PCP - General 02/22/17 documented as of this encounter
--- OUTSIDE RECORDS SUMMARY | 2024-09-04 14:37 | XMS_ITS | Encounter Summary ---
Author Organization [facility] Address [address] [place] [address] Care Team Providers Care Frit Mixer Name Role Phone None, [place] Primary Care Provider Unavailabl e Reason for Visit * Reason Onset Date Comments Other 04/28/2023 Encounter Details Date Type Department Care Team ([facility] st Contact Info) Description 04/28/2023 Telephone Trauma and Oncology Clinic, [facility] [address], [address] [place] [address] Edgard Beverly MD [address] [facility] [address] [place], [place] [id number] Other Social History Tobacco Use Types Packs/Day [...] Notes * Shanna Izaguirre RN - 04/28/2023 1:52 PM EDT I do not see a phone encounter from Friday. Please get details and then route to clinical. * Reza Moody - 04/28/2023 1:41 PM EDT CLARIFICATION/MEDICAL QUESTION Patient needs clarification regarding: Pt has called and LVM on Fri about what to do medical treatment fajardo. She has not heard back yet and would like to speak with somebody. Is it okay to respond to patient via MyChart? No Call is considered ROUTINE PRIORITY and route to appropriate personnel: Patient advised patient calls will be returned as soon as possible and within 24 hours. documented in this encounter Plan of Treatment Not on file documented as of this encounter Visit Diagnoses Not on filedocumented in this encounter Care Teams Frit Mixer Relationship Specialty Start Date End Date None, [place] PCP - General 02/22/17 documented as of this encounter
--- OUTSIDE RECORDS SUMMARY | 2024-09-04 14:37 | XMS_ITS | Encounter Summary ---
Author Organization [facility] Address [address] [place] [address] Care Team Providers Care Utility Division Project Manager Name Role Phone None, [place] Primary Care Provider Unavailabl e Reason for Referral * Evaluate and Treat (Routine) - Closed Specialty Diagnoses / Procedures Referred By Marina samuel Referred To Contact Physical Therapy Diagnoses S/P left knee arthroscopy Zurdo Bell MD [address] [facility] [address] [place] [id number] Phone: tel: fax: Referral ID Status Reason Start Date Expiration Date Visits Re quested Visits Authorized [id number] Closed 05/21/2023 06/20/2024 52 52 Reason for Visit * Reason Comments Follow-up Post Op * Consult and Treat (Routine) - Closed Specialty Diagnoses / Procedures Referred By Marina samuel Referred To Contact Orthopedic Surgery / Sports Medicine Diagnoses sf dos 05/09 [id number] Procedures POST OP Self, [place] x Zurdo Bell MD [address] [facility] [address] [place] [address] Phone: tel: fax: Referral ID Status Reason Start Date Expiration Date Visits Re quested Visits Authorized [id number] Closed 05/05/2023 06/20/2024 99 99 Encounter Details Date Type Department Care Team (Late st Contact Info) Description 05/21/2023 10:55 AM EDT Office Visit Sports Medicine, [facility] [address], [address] [place] [id number] Zurdo Bell MD [address] [place] [address] S/P left knee arthroscopy (Primary Dx) Social History Tobacco Use Types Packs/Day Years [...] AM EDT documented as of this encounter Patient Instructions * Patient Instructions* Elvia Good ATC - 05/21/2023 10:55 AM EDT Thank you for choosing [facility] Orthopedics to receive your care. You will be receiving or have already received a survey through your Social Pointt. PRO (Patient- Reported Outcomes) is a set of person centeredmeasures that evaluates and monitors physical, mental, and social health in adults and children. You may receive a survey each time you are seen at [facility] orthopedics so we can accurately measure your progress and outcomes. Thank you for participating! If an MRI or CT scan was ordered during your visit today, please call [facility] imaging at [phone] with any questions regarding scheduling of this study. If you are scheduled to return to our office to review MRI or CT results, please make sure this imaging is completed prior to your appointment. You may call our office at [phone] to reschedule your follow up appointment if necessary. If you require a prescription refill, please send a AutomateIt message or call our office with this request. Faxed requests from your pharmacy will not be accepted. documented in this encounter Progress Notes * Zurdo Bell MD - 05/21/2023 10:55 AM EDT Orthopaedics Post-operative follow-up Procedure Performed: Left knee arthroscopic PCL avulsion repair Date of Surgery: 05/09/2023 Subjective: Haley Garcia is now almost 2 weeks out from her left knee surgery. She is doing well with no specific complaints other than the expected post- operative pain and stiffness. Pain Ratin/10 Exam: Sutures removed, portal sites benign with no drainage or redness Minimal effusion Knee ROM full extension to 80 degrees flexion Negative posterior drawer's Motor and sensory intact distally Elana's sign negative, no calf tenderness Impression: left knee surgery - doing well Plan: Discussed surgical findings, operative procedure Reviewed post-operative instructions, rehabilitation Weight bearing status: per post operative protocol Symptomatic treatment for pain / swelling Instructed patient to call clinic if questions or concerns PT script provided Follow up in 4 weeks The documentation recorded by the scribe accurately reflects the service I personally performed andthe decisions made by me. Zurdo Bell MD Zurdo Bell MD Sports Medicine / Arthroscopy of the Shoulder, Hip, and Knee Tobacco Stemmer, Orthopaedic Surgery [facility]opa[facility] [place] [address] (P) [phone] (F) [phone] documented in this encounter Plan of Treatment Scheduled Referrals Name Type Priority Associated Diagnoses Orde r Schedule Ambulatory referral to Physical Therapy Outpatient Referral Routine S/P left knee arthroscopy Ordered: 05/21/2023 documented as of this encounter Visit Diagnoses Diagnosis S/P left knee arthroscopy- Primary Other postprocedural status documented in this encounter Care Teams Utility Division Project Manager Relationship Specialty Start Date End Date None, [place] PCP - General 02/22/17 documented as of this encounter
--- OUTSIDE RECORDS SUMMARY | 2024-09-04 14:37 | XMS_ITS | Encounter Summary ---
Author Organization [facility] Address [address] [place] [address] Care Team Providers Care Copy Operator Name Role Phone None, Pioneer Primary Care Provider Unavailabl e Reason for Visit * Reason Onset Date Comments Question 05/10/2023 Encounter Details Date Type Department Care Team ([facility] st Contact Info) Description 05/10/2023 Telephone [address] [place] [address] 6th Floor [address] [place] [address] Jose Alejandro Hull MD [address] [place] [address]. Mail Stop [address] [place] [address] Question Social History Tobacco Use Types Packs/Day Years [...] as of this encounter Progress Notes * Jose Alejandro Hull MD - 05/10/2023 3:09 PM EDT POD1 from L knee PCL repair. Mom reports Haley has had itching underneath PRESTON wrap around knee. Asked them to take down the preston wrap to look at the dressing. Advised that the preston wrap itself may causeitching. Patient's mother said patient is sleeping at this time and does not want to wake her. Advised patient's mother to call back if concerns regarding the dressing or if there is redness, erythema , or drainage. Patient's mother expressed understanding. Also advised that it is ok to take Bendrylfor the itching. Jose Alejandro Hull MD Orthopaedic Surgery PGY-2 documented in this encounter Plan of Treatment Not on file documented as of this encounter Visit Diagnoses Not on filedocumented in this encounter Care Teams Copy Operator Relationship Specialty Start Date End Date None, Pioneer PCP - General 02/22/17 documented as of this encounter
--- OUTSIDE RECORDS SUMMARY | 2024-09-04 14:37 | XMS_ITS | Data Portability ---
Author Organization [place] - [facility], [address] Address [address] [place] [address] Assessment No assessment recorded. Plan of Treatment Reminders Order Date Submit Date Provider Last Modified By Organization Details Last Modified Time Details Appointments None recorded. Lab rapid strep group A, throat 2022 023 [email or web address] 998 [address], [address] [place], [address], 3 16:57:03 Referral None recorded. Procedures None recorded. Surgeries None recorded. Imaging XR, lumbosacral spine, 2 or 3 view 2022 023 [email or web address] 3 [facility], [address] [place], [address], 3 10:42:15 Medication Orders amoxicillin 875 mg tablet 2022 023 [facility] #[id number], [address] [place], [address], 3 12:41:24 methocarbam ol 500 mg tablet 2022 023 [facility] #[id number], [address] [place], [address], 3 13:17:55 Patient TargetsNo targets recorded. Patient Instructions Encounter Date Encounter Id Patient Instructions Last Modified By Organization Details Last Modified Time 10/28/2022 [id number] sore throat: car e instructions [email or web address] Not available 10/28/2022 16:57:03 -Do not hesitate to present to the nearest emergency department or call 911 for any worsening or significant change in symptoms that worry you. -Return to [facility] in 2-3days if you are not improving. -Follow up with your primary care provider (PCP) as needed. [email or web address] Not available 10/28/2022 16:56:39 02/25/2023 [id number] Do not take any methocarbamol if taking any alprazolam. A radiologist will separately review your XR. If they see something that was missed on XR, we will call be end of day Can use Icy hot patches OTC or alternate heat/ice on area Muscle relaxers can make you sleepy, take first dose before bed. Wait one to two days, then can do stretches provided on handout If any significant numbness to lower extremities, significant worsening pain, or incontinence, go to ER [email or web address] Not available 02/25/2023 13:17:53 Reason for Referral None Reported. Results Created Date Observation Date Name Description Value Unit Range Abnormal Flag Note LastModifiedBy Organization Detail LastModifiedTime 10/28/19 23 10/28/2022 rapid strep group A, throa t Unknown Analyte Normal = Negati ve Not Available [id number] [address] [place], [address], 10/28/2022 15:53:05 10/28/19 23 10/28/2022 rapid strep group A, throa t Unknown Analyte negati ve Not Available [facility] [address] [place], [address], 10/28/2022 15:53:05 Result Notes None recorded. Problems Name Problem SNOMED Code Status Onset Date Resolution Date Notes Provider Name and Address Organization Details Recorded Time Anxiety 71712229 Active 023 REBECCA draper, [place] - [facility] 3 15:51:55 Depressive disorder 49574511 Active 023 REBECCA draper, [place] - [facility] 3 15:52:03 Problem Notes None recorded. Medical Equipment None Reported. Allergies No known drug allergies Medications Name Sig Start Date Stop Date Status Note LastModified by Organization Details LastModified Time methocarbam ol 500 mg tablet Take 2 tablets every 6 hours by oral route. 2022 active Not Available Not Available Not Avai lable sertraline 100 mg tablet Take 1 tablet every day by oral route. active Not Available Not Available No t Available alprazolam 0.5 mg tablet TAKE 1 TABLET BY MOUTH DAILY NEEDED FOR PANIC ATTACKS. 15 FOR AT LEAST 30 DAYS active Not Available Not Available No t Available hydroxyzine HCl 10 mg tablet TAKE 1 TABLET BY MOUTH EVERY 8 HOURS NEEDED active Not Available Not Available No t Available escitalopra m 10 mg tablet TAKE 1 TABLET BY MOUTH EVERY DAY 02/25 completed Not Available Not Available Not Available escitalopra m 20 mg tablet TAKE1 TABLET BY MOUTH WITH BREAKFAST 02/25 completed Not Available Not Available Not Available bupropion HCl XL 300 mg 24 hr tablet, extended release TAKE 1 TABLET BY MOUTH EVERY DAY active Not Available Not Available No t Available Vitals Date Recorded Body height Body mass index (BMI) Body weight Respiratory rate Body temperature Heart rate Oxygen saturation Oxygen saturation in Arterial blood by Pulse oximetry Systolic blood pressure Diastolic blood pressure Provider Name and Address Organization Details Last Updated DateTime 3 162.56 cm 26.6 kg/m2 35767.8 2 g 18 /min 97.9 [degF] 85 /min 99 % 99 % 110 mm[Hg] 75 mm[Hg] JOSE GUZMÁN [place] - [facility] 3 12:43:08 Date Recorded Body height Body mass index (BMI) Body weight Respiratory rate Heart rate Body temperature Oxygen saturation Oxygen saturation in Arterial blood by Pulse oximetry Systolic blood pressure Diastolic blood pressure Provider Name and Address Organization Details Last Updated DateTime 3 162.56 cm 26.6 kg/m2 37004.8 2 g 18 /min 66 /min 98.5 [degF] 99 % 99 % 109 mm[Hg] 74 mm[Hg] REBECCA ADAMES PA [facility] 3 15:54:52 Social History Question Answer Notes LastModified by Organizat ion Details LastModified Time Tobacco Smoking Status Never Smoker REBECCA draper [place] - [facility] 10/28/2022 15:52:26 What Is Your Level Of Alcohol Consumption? Occasional Information not available 10/28/2022 Are You Currently Employed? Yes [email or web address] Information not available 02/25/2023 Have You Had Direct Contact, Or Contact During Intimacy, With Monkeypox Rash, Scabs, Or Body Fluids From A Person With Monkeypox? No Information not available 10/28/2022 Do You Use Any Illicit Or Recreational Drugs? No Information not available 10/28/2022 Have You Recently Traveled Abroad? No Information not available 10/28/2022 Do You Or Have You Ever Used Any Other Forms Of Tobacco Or Nicotine? No Information not available 10/28/2022 Sex: Unknown Functional Status None recorded. Mental Status None recorded. Family History Relationship Description Onset Age of this Age Resolved Age Notes LastModified by Organization Details LastModified Time Father No current problems or disability Not available 15:52:08 Mother No current problems or disability Not available 15:52:09 Medical History No medical history recorded. Gynecological History Statement/Question Response Date of LMP 02/21/2023 Is there any chance of ? No Obstetrics History GPAL:G 0 P 0 0 0 0 Past Encounters Encounter ID Performer Location Encounter Start Date Encounter Closed Date Diagnosis/Indication Diagnosis SNOMED-CT Code Diagnosis ICD10 Code [id number] [address] [address] [facility] [place] [address] 10/11/2021 08:13:50 10/11/2021 09:36:39 [id number] [address] [place] [address] [facility] [place] [address] 08/30/2013 14:54:26 08/30/2013 15:43:53 [id number] [address] [place] [address] [facility] [place] [address] 10/05/2021 09:14:48 10/05/2021 10:06:40 [id number] [address] [place] [address] [facility] [place] [address] 08/03/2014 08:09:28 08/03/2014 08:49:14 [id number] [facility] [address] [address] 09/16/2019 08:43:53 09/16/2019 09:06:55 [id number] Keesha Murray [address] [address] [place] [address] 10/28/2022 15:26:56 10/28/2022 16:58:19 Sore throat 967786080 J02.9 [id number] REBECCA DICKENSMALKA [address] [address] [facility] [place] [address] 02/25/2023 12:31:58 02/25/2023 13:21:39 Lower back injury 777857236 S39.92XA Lumbar sprain 347129397 S33.5XXA Health Concerns Section Related Observation LastModified by Organization Detai ls LastModified Time None Recorded Concern Status LastModified by Organization Details LastModified Time None Recorded Advance Directives Directive None Recorded Payers Encounter Date Sequence Insurance Name Policy Number Policy Ortega Covered Member ID Ortega Member ID Guarantor Name 10/05/2021 1 [place] [employer] (MEDICAID HMO) [id number] [id number] Haley Garcia 10/11/2021 1 [place] (MEDICAID HMO) [id number] H[facility] Garcia [id number] Haley Garcia 10/28/2022 1 [place]HMO) [id number] Haley Garcia [id number] Haley Garica 02/25/2023 1 [place]) [id number] Haley Garcia [id number] Haley Garcia Notes Date Note Type Note Provider Name and Address Organization Details Recorded Time 10/28/2022 text/html Ms. Garcia present s to the clinic today for evaluation of sore throat. Patient states that she has had s/sx for the last 2d and that s/sx are worsening. She states that she has some pain with swallowing and talking. She states no issues with chills/sweats/feve r, ear pain/pressure. She denies any runny/stuffy nose or cough. She has a hx of strep and feels similar. She states some benefit w/ use of salt water gargles and motrin. She denies any recent sick contacts. No FATIMA, CP/SOB, abd pain/n/v/bowel/uri nary issues. No concerns for . No other stated concerns or complaints today. Keesahdawn Mullins Pac [address] [place], [address], [place] - [facility] 10/28/2022 17:01:31 02/25/2023 text/html Back Pain/Injury UCReported bypatient.Notes:Re ports mild pain in right lower back since. Denies any numbness/tingling into lower extremities. Denies any pain into lower extremities. States stretching to the left, pulls in right lower back, but no significant pain with flexion or extension. Has tried ibuprofen which has helped some. Pain also increased wtih walking, but again denies any numbness into lower extremities or incontinence REBECCA DICKENS, MICA MINER [address] [place], [address], [place] - [facility] 02/25/2023 13:18:36 OBGyn Episode No OBEpisode recorded.
== END 2024-09-04 14:36 | disposition home or self-care (01) ==
LOC: LBN 14:35
PROVIDERS: Visit Provider Physician Assistant
DX: J02.9 Acute pharyngitis, unspecified (principal)
CPT/HCPCS: 87070